=== PATIENT | female | born 1965 | race Caucasian/White ===

== ENCOUNTER 2024-11-24 16:30 | Outpatient (CLI) | payer OTHER, SELFPAY ==
--- OUTSIDE RECORDS SUMMARY | 2024-11-24 16:34 | XMS_ITS | Referral Summary ---
Author Organization [facility] Address [address] [place] [id number] Care Team Providers Care State Historical Society Director Name Role Phone Loni Morales Primary Care Provider Encounters Date Type Department Care Team Description 09/08/2024 9:34 AM ETHNOARCHAEOLOGIST - 09/08/2024 11:59 PM ETHNOARCHAEOLOGIST Hospital Encounter [facility] [address] [place] [address] Centrilobular emphysema (HCC) Discharge Disposition: Discharge to home or self care 09/08/2024 9:38 AM ETHNOARCHAEOLOGIST - 09/08/2024 11:59 PM [facility] Hospital Encounter [facility] [address] [place] [address] Encounter for screening mammogram for malignant neoplasm of breast Discharge Disposition: Discharge to home or self care from Last 3 Months Allergies No known active allergies Medications acetaminophen (TYLENOL) 325 mg tablet Take 650 mg by mouth every 6 (six) hours as needed for pain. Active SPIRIVA RESPIMAT 2.5 mcg/actuation inhalerIndication s:Centrilobular emphysema (HCC) Inhale 2 puffs daily 3 Inhaler 3 0 Active cholecalciferol (VITAMIN D-3) 10,000 unit tablet Take 1 tablet (10,000 Units total) by mouth once a week 12 tablet 3 0 Active pitavastatin calcium (LIVALO) 1 mg tablet Take 1 tablet (1 mg total) by mouth daily 30 tablet 2 0 Active allopurinoL (ZYLOPRIM) 100 mg tabletIndications :Gout of right foot, unspecified cause, unspecified chronicity TAKE 1 TABLET(100 MG) BY MOUTH TWICE DAILY 180 tablet 1 0 Active NIFEdipine (NIFEdipine CC) 90 mg 24 hr tabletIndications :Essential hypertension Take 1 tablet (90 mg total) by mouth daily 90 tablet 3 1 Active albuterol HFA (PROVENTIL HFA,VENTOLIN HFA,PROAIR HFA) 90 mcg/actuation inhalerIndication s:Centrilobular emphysema (HCC) Inhale 2 puffs every 4 (four) hours as needed for wheezing 1 Inhaler 1 Active metoprolol tartrate (LOPRESSOR) 50 mg immediate release tabletIndications :Essential hypertension TAKE 1/2 TABLET(25 MG) BY MOUTH TWICE DAILY 90 tablet 3 1 Active lisinopriL (PRINIVIL,ZESTRIL ) 20 mg tabletIndications :Essential hypertension Take 1 tablet (20 mg total) by mouth daily 30 tablet 1 Active Active Problems Problem Noted Date Diagnosed Date Vitamin D deficiency 07/17/2019 Assessment & Plan (05/17/2020 2:09 PM ETHNOARCHAEOLOGIST): HPI: Condition is stable A&P: Discussed/ordered labs, encouraged healthy, low carbohydrate lifestyle and at least 150min/week of exercise, continue on vit d3 47323 units weekly Assessment & Plan (07/17/2019 3:41 PM ETHNOARCHAEOLOGIST): Pt was out of vit d for multiple months. Class 2 obesity due to exces s calories without serious comorbidity with body mass index (BMI) of 36.0 to 36.9 in adult 06/26/2017 Assessment & Plan (05/17/2020 2:11 PM ETHNOARCHAEOLOGIST): HPI: Condition is stable A&P: Healthy, low carbohydrate lifestyle and exercise for 150min/week recommended Substitutions: [employer] carries a zero net carb bread If you are looking for whole potatoes, like to use in soup or new potato shape/flavor, radishes are a great replacement If you are looking for mashed potatoes, riced cauliflower in the frozen bag section are a great replacement For pasta, try using zucchini noodles, lay them out on a cookie sheet and pat dry with a tea towel to try to remove as much moisture as possible. Heat your pasta sauce on the stove and put the noodles in for 30-45 seconds. If you leave them in much longer they will become mushy [place] and/or coconut flour instead of regular flour For pizza dough, try fathead pizza dough recipe online. To get a crispy crust, bake on one side for 8-12 min, then flip over and bake on the other side for 8-12 min, then put toppings on and bake until the cheese on top of pizza melts chaffles recipe online For ice cream, try the brand Enlightened Use Pinterest for recipe ideas. Type in low carb... Assessment & Plan (07/17/2019 3:03 PM ETHNOARCHAEOLOGIST): Healthy, low carbohydrate lifestyle and exercise for 150min/week recommended Assessment & Plan (01/21/2018 10:37 AM CDT): Obesity is unchanged. Discussed the patient's BMI. The BMI is above average; BMI management plan is completed. Diet interventions: low calorie (1000 kCal/d) deficit diet.Diet-Many types of diets produce modest weight loss. Options include balanced low-calorie, low-fat low-calorie, moderate-fat low-calorie, low-carbohydrate diets, and the Mediterranean diet. Dietary adherence is an important predictor of weight loss, regardless of the type of diet. Exercise -- Although less potent than dietary restriction in promoting weight loss, increasing energy expenditure through physical activity is a strong predictor of weight loss maintenance. Physical activity should be performed for approximately 30 minutes or more, five to seven days a week, to prevent weight gain and to improve cardiovascular health. Behavior modification or behavior therapy is one cornerstone in the treatment for obesity. The goal of behavioral therapy is to help patients make long-term changes in their eating behavior by modifying and monitoring their food intake, modifying their physical activity, and controlling cues and stimuli in the environment that trigger eating. At least 30 minutes a day for at least 5 days a week for a total of 150 minutes a week or moderate-intensity activity! Something is always better than nothing! Centrilobular emphysema 03/30/2017 Overview (10/13/2020): Patient no longer seeing hanger off Dr. Ned Mauro Assessment & Plan (05/17/2020 2:10 PM ETHNOARCHAEOLOGIST): HPI: Condition is stable A&P: Discussed/ordered labs, encouraged healthy, low carbohydrate lifestyle and at least 150min/week of exercise, continue on spiriva respimat 2 puff daily, Please consider the albuterol as a rescue only medication. If needing the albuterol more than 2xwk, please contact office. Pt no longer seeing Dr. Mauro (pulmonology) Assessment & Plan (07/17/2019 3:32 PM ETHNOARCHAEOLOGIST): Discussed/ordered labs, Condition is stable, encouraged healthy, low carbohydrate lifestyle and at least 150min/week of exercise, continue on spiriva daily and using albuterol as needed for rescue Pt ran out of spiriva and albuterol about 3 mo ago No longer seeing Dr. Mauro (pulm) Hyperlipidemia 03/18/2014 Overview (10/19/2016): Hyperlipidemia Assessment & Plan (05/18/2020 9:47 AM ETHNOARCHAEOLOGIST): HPI: Condition is stable A&P: Discussed/ordered labs, encouraged healthy, low carbohydrate lifestyle and at least 150min/week of exercise, she has tried simvastatin, atorvastatin, zetia- these all caused her legs to feel like lead, gemfibrozil caused excessive diarrhea. Assessment & Plan (07/17/2019 3:40 PM ETHNOARCHAEOLOGIST): Discussed/ordered labs, Condition is stable, encouraged healthy, low carbohydrate lifestyle and at least 150min/week of exercise Pt has been off of diet since April and just started back on her low carb diet a few days ago Hypertension 11/28/2013 Overview (10/17/2016): HTN (hypertension) Assessment & Plan (05/18/2020 9:34 AM ETHNOARCHAEOLOGIST): HPI: Condition is Stable, bp at home has been good 120s/70s A&P: Discussed/ordered labs, encouraged healthy, low carbohydrate lifestyle and at least 150min/week of exercise, pt has no residual effects from stroke. Continue on lisinopril 20mg daily, metoprolol tartrate 25mg twice daily and nifedipine 90mg daily to keep blood pressure under good control Assessment & Plan (07/17/2019 3:02 PM ETHNOARCHAEOLOGIST): Discussed/ordered labs, Condition is stable, encouraged healthy, low carbohydrate lifestyle and at least 150min/week of exercise, continue on lisinopril 20mg, metoprolol 50mg and nifedipine 90mg Assessment & Plan (01/21/2018 10:34 AM CDT): Hypertension is unchanged. Continue current treatment regimen. Blood pressure will be reassessed in 3 months.Lifestyle changes can help you control and prevent high blood pressure, even if you're taking blood pressure medication. Here's what you can do: Eat healthy foods. Eat a healthy diet. Try the Dietary Approaches to Stop Hypertension (DASH) diet, which emphasizes fruits, vegetables, whole grains, poultry, fish and low-fat dairy foods. Get plenty of potassium, which can help prevent and control high blood pressure. Eat less saturated fat and trans fat. Decrease the salt in your diet. A lower sodium level -- 1,500 milligrams (mg) a day -- is appropriate for people 51 years of age or older, and individuals of any age who are black or who have hypertension, diabetes or chronic kidney disease. Maintain a healthy weight. Keeping a healthy weight, or losing weight if you're overweight or obese, can help you control your high blood pressure and lower your risk of related health problems. If you're overweight, losing even 5 pounds (2.3 kilograms) can lower your blood pressure. Increase physical activity. Regular physical activity can help lower your blood pressure, manage stress, reduce your risk of several health problems and keep your weight under control. Limit alcohol. Even if you're healthy, alcohol can raise your blood pressure. If you choose to drink alcohol, do so in moderation. For healthy adults, that means up to one drink a day for women of all ages and men older than age 65, and up to two drinks a day for men age 65 and younger. One drink equals 12 ounces of beer, 5 ounces of wine or 1.5 ounces of 80-proof liquor. Don't smoke. Tobacco injures blood vessel truong and speeds up the process of hardening of the arteries. If you smoke, ask your doctor to help you quit. Manage stress. Reduce stress as much as possible. Practice healthy coping techniques, such as muscle relaxation, deep breathing or meditation. Getting regular physical activity and plenty of sleep can help, too. Notify the office for blood pressure greater than 130/80 Pt. Did stop taking HCTZ and BP is stable. Will continue to monitor without diuretic. History of stroke 11/28/2013 Overview (06/26/2017): History of CVA (cerebrovascular accident) 2010 - no residual - no bleed, secondary to HTN Assessment & Plan (05/17/2020 2:08 PM ETHNOARCHAEOLOGIST): HPI: Condition is stable A&P: Discussed/ordered labs, encouraged healthy, low carbohydrate lifestyle and at least 150min/week of exercise, pt has no residual effects from stroke. Continue on atorvastatin 10mg daily, lisinopril 20mg daily, metoprolol tartrate 25mg twice daily and nifedipine 90mg daily to keep blood pressure under good control Assessment & Plan (07/17/2019 3:34 PM ETHNOARCHAEOLOGIST): Pt never saw neurology after being released from hospital. She was seeing scheduler maintenance but hasn't seen anyone in a while No residual effects from stroke Gout 09/24/2013 Overview (10/17/2016): Gout Assessment & Plan (05/17/2020 2:06 PM ETHNOARCHAEOLOGIST): HPI: Condition is stable , pt avoids trigger foods and drinks A&P: Discussed/ordered labs, encouraged healthy, low carbohydrate lifestyle and at least 150min/week of exercise, continue on allopurinol 100mg twice daily Last flare summer 2017 Assessment & Plan (07/17/2019 3:35 PM ETHNOARCHAEOLOGIST): Discussed/ordered labs, Condition is stable, encouraged healthy, low carbohydrate lifestyle and at least 150min/week of exercise, pt has been out of allopurinol for the last couple weeks. She has been avoiding trigger food and drinks Last flare was summer 2017 Assessment & Plan (01/21/2018 10:56 AM CDT): Gout is a syndrome of hyperuricemia and deposition of urate crystals causing attacks of acute inflammatory arthritis; tophi around the joints and possible joint destruction; renal glomerular, tubular, and interstitial disease; and uric acid urolithiasis. The disease most commonly affects the first toe (podagra), foot, ankle, knee, fingers, wrist, and elbow; however, it can affect any joint. Risk factors that can lead to gout include eating foods with high purine like seafood, meat, and alcohol especially Beer. Limit intake of soda and other beverages that contain sweeteners with high fructose corn syrup. Limit vegetables that are high in purines like asparagus, spinach, and mushrooms. If you are diabetic-keep your blood sugar controlled. If you have high blood pressure keep it controled and maintain a healthy weight. Increase water intake and stay well hydrated. Rest and Elevate affected joint when sitting or lying down to help reduce swelling Take any medications as prescribed If symptoms worsen- go to ER or call PCP Will check Uric acid level today No swelling or warmth to right foot. Pt. Complains of pain and tenderness and unable to bear weight. Will check CBC Encourage patient to continue Allopurinol Can take colchicine as needed and may repeat in 3 days if needed. Pt. Did stop HCTZ since it can increase Uric acid. Will do x-ray to check and see if any erosion is present. Pt. States she was at a urgent care and did a x-ray but do not have any x-rays here to evaluate. Pt. Would like Vicodin for pain but I do not believe an opiate is appropriate with the abuse and addition potential. Pt. Can take NSAID's as needed for a flare up. Her kidney function is normal. She did have an episode of acute kidney insufficieny about 3 years ago r/t an acute problem. Pt. With a family history of RA and gout Will check RF and RAUL also Assessment & Plan (01/10/2018 6:04 PM CDT): Gout is a syndrome of hyperuricemia and deposition of urate crystals causing attacks of acute inflammatory arthritis; tophi around the joints and possible joint destruction; renal glomerular, tubular, and interstitial disease; and uric acid urolithiasis. The disease most commonly affects the first toe (podagra), foot, ankle, knee, fingers, wrist, and elbow; however, it can affect any joint. Risk factors that can lead to gout include eating foods with high purine like seafood, meat, and alcohol especially Beer. Limit intake of soda and other beverages that contain sweeteners with high fructose corn syrup. Limit vegetables that are high in purines like asparagus, spinach, and mushrooms. If you are diabetic-keep your blood sugar controlled. If you have high blood pressure keep it controled and maintain a healthy weight. Increase water intake and stay well hydrated. Rest and Elevate affected joint when sitting or lying down to help reduce swelling Take any medications as prescribed Pt. With Gout Flare that started about 11 days ago. Tried Prednisone, Cochicine- with some improvement but not fully recovered Last Uric Acid level 10 on 09/26/17, She has a history of high Uric Acid. Will give a Medrol dose pack Pt. To Resume Allopurinol Will D/C Hydrochlorothiazide (discontinued)-thiazide diuretic may lead, over time, to new-onset gout and, in patients with already established gout, more frequent occurrence of gout flares Consult Rheumatology for Strong family history of Gout. Pt. Reports that her Dad, brother, and uncles all have had recurrent problems with Gout-She may have an inflammatory process that increases her frequency of Gout. Explained to her nely-term goals are to prevent recurrent attacks and chronic joint destruction. The earlier treatment is initiated, the better the clinical response. Pt. Can also take 800 mg of Motrin at Onset of symptoms in the future. Resolved Problems Problem Noted Date Diagnosed Date Resolved Date Greater trochanteric bursitis of right hip 03/31/2019 07/17/2019 Primary osteoarthritis of left foot 02/28/2018 07/17/2019 Bone marrow edema 02/28/2018 07/17/2019 Overview (02/28/2018): Right foot 1st metatarsal with marrow edema. Migraine 11/28/2013 07/17/2019 Overview (10/20/2016): Migraine Edema 11/28/2013 07/17/2019 Overview (10/20/2016): Chronic edema Immunizations Immunization Administration Dates Next Due Hep B Vaccine 07/24/2016 Influenza, Quadrivalent, Spl it, Preservative Free, Intradermal 06/13/2016 Influenza, Trivalent, IM (MDV) 05/14/2013 Influenza, Unspecified 04/28/2020,04/14/2019, MMR 07/17/2016 Social History Tobacco Use Types Packs/Day Years Used Date Smoking Tobacco: Former Cigarettes 0.8 27 0 07/15/1984 - 07/14/2011 Smokeless Tobacco: Never Alcohol Use Standard Drinks/Week Comments No 0 (1 standard drink = 0.6 oz pur e alcohol) PHQ-2 Answer Date Recorded PHQ-2 Total Score (If total score is 3 or more points, staff should administer the PHQ-9) 0 05/18/2020 Comments Unknown Sex and Gender Information Value Date Recorded Sex Assigned at Not on file Legal Sex Female 1:52 AM ETHNOARCHAEOLOGIST Gender Identity Not on file Sexual Orientation Not on file 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 Not on file Not on file Not on file Last Filed Vital Signs Vital Sign Reading Time Taken Comments Blood Pressure 117/74 05/18/2020 9:23 AM ETHNOARCHAEOLOGIST Pulse 89 07/17/2019 3:25 PM ETHNOARCHAEOLOGIST Temperature 36.8 C (98.2 F) 07/17/2019 3:25 PM ETHNOARCHAEOLOGIST Respiratory Rate 10 07/17/2019 3:25 PM ETHNOARCHAEOLOGIST Oxygen Saturation 96% 07/17/2019 3:25 PM ETHNOARCHAEOLOGIST Inhaled Oxygen Concentration - - Weight 90.7 kg (200 lb) 05/18/2020 9:23 AM ETHNOARCHAEOLOGIST Height 157.5 cm (5' 2 ) 05/18/2020 9:23 AM ETHNOARCHAEOLOGIST Body Mass Index 36.58 05/18/2020 9:23 AM ETHNOARCHAEOLOGIST Plan of Treatment Not on file Procedures Procedure Name Priority Date/Time Associated Diagnosis Comments PULMONARY FUNCTION TEST (PFT) Routine 09/08/2024 10:31 AM ETHNOARCHAEOLOGIST Centrilobular emphysema (HCC) SCREENING MAMMOGRAM BILATERAL W DYLON Schedule Routine, Read Routine (OP Routine) 09/08/2024 9:58 AM ETHNOARCHAEOLOGIST Encounter for screening mammogram for malignant neoplasm of breast STOOL DNA COLOGUARD Routine 06/09/2020 8:25 PM ETHNOARCHAEOLOGIST Screening for colon cancer HEPATITIS C ANTIBODY Routine 07/17/2019 4:09 PM ETHNOARCHAEOLOGIST Encounter for hepatitis C screening test for low risk patient from Last 3 Months or Most Recently Relevant to Health Maintenance Results * Pulmonary Function Test - (09/08/2024 10:31 AM ETHNOARCHAEOLOGIST) Anatomical Region Laterality Modality PFT 09/08/2024 9:43 AM ETHNOARCHAEOLOGIST Narrative 09/08/2024 5:31 PM ETHNOARCHAEOLOGIST PFT performed at:-[facility] Spirometry shows mild obstruction. Positive for significant bronchdilator response. Lung volumes with no restrictive lung disease. Elevated RV suggests air trapping. No diffusion impairment. Normal inspiratory flow loop. Electronically signed by Linda Cuenca MD us Loni Morales DO PFT ORDERABLES Final Result * Screening Mammogram Bilateral W Dylon (09/08/2024 9:58 AM ETHNOARCHAEOLOGIST) Anatomical Region Laterality Modality Breast Bilateral Mammography 09/08/2024 12:3 5 PM ETHNOARCHAEOLOGIST Impressions 09/08/2024 12:35 PM ETHNOARCHAEOLOGIST There is no mammographic evidence of malignancy. A 1 year screening mammogram is recommended. BI-RADS: 2 - Benign. The patient has been or will be contacted. The patient will be entered into a reminder system with a target due date of 1 year for her next mammogram. Electronically signed by: Slim Hurtado M.D. Narrative 09/08/2024 12:35 PM ETHNOARCHAEOLOGIST EXAMINATION: SCREENING MAMMOGRAM BILATERAL W DYLON ORDERING HEALTHCARE PROVIDER: LONI MORALES HISTORY: Routine screening mammography. COMPARISON: 08/10/2016, 08/14/2013, 11/19/2011 TECHNIQUE: CC and MLO views of the bilateral breasts were obtained with digital technique using breast tomosynthesis with C view. Computer aided detection was utilized. FINDINGS: DENSITY: The breasts are almost entirely fatty. BREASTS: There is a stable benign-appearing mass in the inferior right breast. There are no suspicious masses, suspicious calcifications, or other suspicious findings in either breast. There has been no suspicious interval change. Loin Morales DO IMG MAMMO PROCEDURES F inal Result * Stool DNA - Cologuard (06/09/2020 8:25 PM ETHNOARCHAEOLOGIST) Stool DNA - Cologuard Negative Not Applicable [employer] (CLIA #:[id number]) Comment: A negative result indicates a low likelihood that a colorectal cancer (CRC) or an advanced adenoma (adenomatous polyps with more advanced pre-malignant features) is present. The chance that a person with a negative Cologuard test has a colorectal cancer is less than 1 in 1500 (negative predictive value >99.9%) or has an advanced adenoma is less than 5.3% (negative predictive value 94.7%). These data are based on a prospective cross-sectional screening study of 10,000 individuals at average risk for colorectal cancer who were screened with both Cologuard and colonoscopy. (Janneth De La Torre. et al, N Engl J Med 2014;370(14):3247-0898) The normal value (reference range) for this assay is negative. COLOGUARD RE-SCREENING RECOMMENDATION: Periodic routine colorectal cancer screening is an important part of preventive healthcare for asymptomatic persons at average risk for colorectal cancer. Following a negative Cologuard result, the [place] and U.S. Multi-Society Task Force screening guidelines recommend a Cologuard re-screening interval of 3 years. References: [place] (ACS). Colorectal cancer prevention and early detection. [place], [place]: [place] [employer]; [updated 2015Nov 05]. https://www.cancer.org/cancer/yqfxb-jhjbmv-htcmvj/hkatlmdyu-fjfjrxajc-tmpcuxq/ac s-rec ommendations.html. Accessed March 14, 2018; Segundo FRAZIER, Jayjay MAYS, Lauren FLORES, Colorectal Cancer Screening: Recommendations for Physicians and Patients from the U.S. Multi-Society Task Force on Colorectal Cancer Screening, Am J Gastroenterology 2017; 112:8812-2535. TEST TYPE: Composite algorithmic analysis of stool DNA-biomarkers with hemoglobin immunoassay. Quantitative values of individual biomarkers are not reportable and are not associated with individual biomarker result reference ranges. PRECAUTIONS AND LIMITATIONS: Cologuard is intended for colorectal cancer screening of adults of either sex, 45 years or older, who are at average-risk for colorectal cancer (CRC). Cologuard has been approved for use by the U.S. FDA. Cologuard may produce a false negative or false positive result. A negative Cologuard test result does not guarantee the absence of CRC or advanced adenoma (pre-cancer). Patients with a negative Cologuard test result should be advised to continue participating in a colorectal cancer screening program. The screening interval for Cologuard is currently recommended at an interval of every 3 years by the [place] and U.S. Multi-Society Task Force. A false positive result occurs when Cologuard produces a positive result, even though a colonoscopy may not find colorectal cancer or precancerous polyps. The performance of Cologuard has been established in a cross sectional study (i.e., single point in time) of average-risk adults aged 50-84. Cologuard performance in patients ages 45 to 49 years was estimated by sub-group analysis of near-age groups. Cologuard performance data in a 10,000 patient pivotal study using colonoscopy as the reference method can be accessed at the following location: www.[employer]/results. Additional description of the Cologuard test process, warnings and precautions can be found at www.cologuardtest.com. Rx only. Stool 06/09/2020 8:25 PM ETHNOARCHAEOLOGIST 06/11/2020 1:06 PM ETHNOARCHAEOLOGIST Mary Marks NP LAB BODY FLUIDS AND STOOLS ORDERABLES Final Result [employer] [facility] (CLIA #:[id number]) Eliu Velas[place] [address] * Hepatitis C antibody (07/17/2019 4:09 PM ETHNOARCHAEOLOGIST) Hep C Ab Negative Negative EDDI PILLAI (ARISTEO) Comment:Testing performed by : [facility], [address] [place] [address], [place]., [address] Blood specimen (specimen) 07/17/2019 4:09 PM ETHNOARCHAEOLOGIST 07/18/2019 6:45 PM ETHNOARCHAEOLOGIST us Mary Marks NP LAB MICROBIOLOGY - GENERAL ORDERABLES Final Result Performing Organization Address City/State/[facility] Co de Phone Number [facility] ([place]) 1 [facility] Department [place] [address] from Last 3 Months or Most Recently Relevant to Health Maintenance Insurance [id number] [id number] PLUS [facility] CHOICE PLUS Care [employer] Director Relationship Specialty Start Date End Date Loni Morales DO [address] [place] [address] PCP - General Family Medicine 11/17/24
--- OUTSIDE RECORDS SUMMARY | 2024-11-24 16:35 | XMS_ITS | Encounter Summary ---
Author Organization [facility] Address [facility] [place] [address] Care Team Providers Care Bike Designer Name Role Phone Loni Morales DO Primary Care Provider [phone] Encounter Details Date Type Department Care Team (Late st Contact Info) Description 10/01/2024 MyChart Message Enc [facility] [place] [address] [facility] [address] [facility] [address] [place], [place] [id number] [facility], [facility] Provider xray results Social History Tobacco Use Types Packs/Day Years Used Date Smoking Tobacco: Former Cigarettes 0.5 26 1 985 - 2010 Passive Smoke Exposure: Past Smokeless Tobacco: Never Alcohol Use Standard Drinks/Week Comments Not Currently 0 (1 standard drink = 0.6 oz pur e alcohol) PHQ-2 Answer Date Recorded Patient Health Questionnaire-2 Score 0 07/16/2024 Comments No Sex and Gender Information Value Date Recorded Sex Assigned at Female 09/29/2024 2:22 PM CDT Legal Sex Female 12:45 PM KNUCKLE BENDER Gender Identity Female 09/29/2024 2:22 PM CDT Sexual Orientation Not on file documented as of this encounter Plan of Treatment Upcoming Encounters Date Type Department Care Team (Late st Contact Info) Description 11/26/2024 7:40 AM CDT [facility] [place] [address] [place], [place] [id number] Loni Morales DO [address] [place], [place] [id number] documented as of this encounter Visit Diagnoses Not on filedocumented in this encounter Additional Health Concerns Assessment Noted Time PHQ-9 Depression Total Score: 2 07/16/19 25 2:17 PM KNUCKLE BENDER documented as of this encounter Care Teams Bike Designer Relationship Specialty Start Date End Date Loni Morales DO [address] [facility] [address] [place] [address] PCP - General FAMILY PRACTICE 06/24/24 documented as of this encounter
--- OUTSIDE RECORDS SUMMARY | 2024-11-24 16:35 | XMS_ITS | Encounter Summary ---
Author Organization [facility] Healthcare Address [address] [place] [address] Care Team Providers Care Sample Stitcher Name Role Phone Krista Hernandez MD Primary Care Provider [phone] Krista Hernandez MD Primary Care Provider [phone] Loni Morales DO Primary Care Provider Reason for Visit * Reason Onset Date Comments Scheduling Appointments 02/03/2021 Confirmi ng mammogram appt- no answer Encounter Details Date Type Department Care Team (Late st Contact Info) Description 02/03/2021 Telephone [facility] [address] [place] [id number] [address] RT Scheduling Appointments (Confirming mammogram appt- no answer ) Social History Tobacco Use Types Packs/Day Years [...] on file 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 Gender Identity Not on file Sexual Orientation Not on file 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 Not on file Not on file Not on file documented as of this encounter Plan of Treatment Not on file documented as of this encounter Visit Diagnoses Not on filedocumented in this encounter Care Teams Sample Stitcher Relationship Specialty Start Date End Date Krista Hernandez MD [address] [facility] [address] PCP - General Internal Medicine 01/30/21 04/26/21 Krista Hernandez MD [address] [facility] [address] PCP - General Internal Medicine 04/27/21 11/16/24 Loni Morales DO [address] [place], [place] [id number] PCP - General Family Medicine 11/17/24 documented as of this encounter
--- OUTSIDE RECORDS SUMMARY | 2024-11-24 16:35 | XMS_ITS | Clinical Summary ---
Author Organization [facility] Address [address] [place] [address] Phone Care Team Providers Care Application Infrastructure Engineer Name Role Phone Mary Marks SLASHER SAWYER Primary Care Provi santy Allergies No known active allergies Medications lisinopril (PRINIVIL, ZESTRIL) 20 MG Tablet Take 20 mg by mouth daily. Active NIFEdipine (PROCARDIA XL) 90 MG TABLET SR 24 HR Take 90 mg by mouth daily. Active metoprolol Succinate (TOPROL-XL) 25 MG TABLET SR 24 HR Take 12.5 mg by mouth 2 times daily. Active allopurinol (ZYLOPRIM) 100 MG Tablet Take 50 mg by mouth 2 times daily. Active albuterol 108 (90 Base) MCG/ACT Aerosol Solution take 2 Puffs by inhalation. 06/26/2017 Active Cholecalciferol (VITAMIN D3) 47284 UNIT Capsule TK 1 C PO QD 07/21/2019 Active Active Problems Problem Noted Date Diagnosed Date Centrilobular emphysema 03/30/2017 Overview (09/13/2019): Managed by socially responsible investment adviser Dr. Ned Mauro Last Assessment & Plan: Discussed/ordered labs, Condition is stable, encouraged healthy, low carbohydrate lifestyle and at least 150min/week of exercise, continue on spiriva daily and using albuterol as needed for rescue Pt ran out of spiriva and albuterol about 3 mo ago No longer seeing Dr. Mauro (pulm) Hyperlipidemia 03/18/2014 Overview (09/13/2019): Hyperlipidemia Last Assessment & Plan: Discussed/ordered labs, Condition is stable, encouraged healthy, low carbohydrate lifestyle and at least 150min/week of exercise Pt has been off of diet since April and just started back on her low carb diet a few days ago History of stroke 11/28/2013 Overview (09/13/2019): History of CVA (cerebrovascular accident) 2010 - no residual - no bleed, secondary to HTN Last Assessment & Plan: Pt never saw neurology after being released from hospital. She was seeing graining press operator but hasn't seen anyone in a while No residual effects from stroke Hypertension 11/28/2013 Overview (09/13/2019): HTN (hypertension) Last Assessment & Plan: Discussed/ordered labs, Condition is stable, encouraged healthy, low carbohydrate lifestyle and at least 150min/week of exercise, continue on lisinopril 20mg, metoprolol 50mg and nifedipine 90mg Encounters Date Type Department Care Team Description 10/29/2024 11:00 AM CDT - 10/29/2024 11:59 PM CDT [facility] Ul[facility] [address] [place] [address] Provider, Not On File Loni Morales DO Discharge Disposition: Discharged to home or Selfcare 10/29/2024 Travel 10/29/2024 Transcribe Orders [facility] Central Scheduling [address] [place] [address] Loni Morales FNP Postmenopausal bleeding (Primary Dx) from Last 3 Months Family History Medical History Relation Name Comments Coronary Artery Disease Brother Coronary Artery Disease Father Chronic Obstructive Pulmonary Disease Mother Coronary Artery Disease Other Uncle Relation Name Status Comments Brother Father Mother Other Uncle Alive Social History Tobacco Use Types Packs/Day Years Used Date Smoking Tobacco: Former Smokeless Tobacco: Never Alcohol Use Standard Drinks/Week Comments Not Asked 0 (1 standard drink = 0.6 oz pur e alcohol) AUDIT-C Answer Date Recorded Frequency of Alcohol Consumption Never 03/14/2019 Average Number of Drinks Not on file 019 Frequency of Binge Drinking Not on file 0807/2018 Comments No Sex and Gender Information Value Date Recorded Sex Assigned at Not on file Legal Sex Female 9:10 PM CDT Gender Identity Not on file Sexual Orientation Not on file Last Filed Vital Signs Vital Sign Reading Time Taken Comments Blood Pressure 126/55 09/13/2019 5:55 PM CONTROL ANALYST Pulse 95 09/13/2019 5:55 PM CONTROL ANALYST Temperature 38.3 C (101 F) 09/13/2019 5:55 PM CONTROL ANALYST Respiratory Rate 16 09/13/2019 4:22 PM CONTROL ANALYST Oxygen Saturation 95% 09/13/2019 5:55 PM CONTROL ANALYST Inhaled Oxygen Concentration - - Weight 87.5 kg (193 lb) 09/13/2019 4:22 PM CONTROL ANALYST Height 157.5 cm (5' 2 ) 09/13/2019 4:22 PM CONTROL ANALYST Body Mass Index 35.3 09/13/2019 4:22 PM CONTROL ANALYST Plan of Treatment Health Maintenance Due Date Last Done Comments TdaP Immunization 1964 Pneumococcal Immunization (50+ years) (1 of 2 - PCV) 11/10/1983 Pap Smear 1985 Cervical Cancer Screening (CCS) 1994 HPV/Cotest 1994 Colonoscopy 2009 Colorectal Cancer Screening 2009 Cologuard 2014 Immunochemical Fecal Occult Blood 2014 Zoster Immunization (1 of 2) 2014 Hepatitis B Immunization (2 of 3 - 19+ 3-dose series) 08/21/2016 07/24/2016 SARS-COV-2 Immunization ( season) 2024 04/26/2022, 12/27/2021, 04/26/2021, Additional history exists Respiratory Syncytial Virus (RSV) Immunization (Adult) (1 - Risk 60-74 years 1-dose series) 2024 Mammogram 09/08/2025 09/08/2024, 08/10/2016 Influenza Immunization Completed , 05/06/2023, 04/28/2020, Additional history exists Hepatitis C Virus (HCV) Screening Completed 10/13/2024 Meningococcal Immunization (ACWY) Aged Out No longer eligible based on patient's age to complete this topic Rotavirus Immunization Aged Out No lo nger eligible based on patient's age to complete this topic Procedures Procedure Name Priority Date/Time Associated Diagnosis Comments US PELVIS COMPLETE WITH TRANSVAGINAL STAT 10/29/2024 4:42 PM CDT Postmenopausal bleeding from Last 3 Months Results * US PELVIS COMPLETE WITH TRANSVAGINAL (10/29/2024 4:42 PM CDT) Anatomical Region Laterality Modality Abdomen N/A Ultrasound 10/29/2024 5:46 PM CDT Impressions 10/29/2024 5:49 PM CDT IMPRESSION: No evidence of an acute abnormality. Uterine fibroid 2.1 cm, has submucosal extension. Endometrium normal thickness. Left ovary could not be demonstrated for assessment, by history surgically absent. Normal appearance of the right ovary. Narrative 10/29/2024 5:49 PM CDT EXAM DESCRIPTION: US PELVIS COMPLETE WITH TRANSVAGINAL REASON FOR STUDY: POSTMENOPAUSAL BLEEDING , history of left oophorectomy. Postmenopausal bleeding for 3 months. TECHNIQUE: Grayscale ultrasound of the pelvic contents was performed with transabdominal and transvaginal transducer. COMPARISON: None. FINDINGS: UTERUS: The uterus is anteverted. The uterus is homogenous in echotexture and measures 7.2 x 4.6 x 3.9 cm. Large nabothian cyst is noted. There is a uterine fibroid anterior upper uterine body with post subserosal and submucosal components, does distort the endometrium, this mass is 2.1 x 1.9 x 2.1 cm. ENDOMETRIUM: The endometrium measures 0.3 cm in thickness. RIGHT OVARY: The right ovary measures 2.4 x 1.9 x 1.8 cm. There is documentation of color Doppler flow in the right ovary. The right ovary appears unremarkable. LEFT OVARY: The left ovary could not be demonstrated for assessment, by history surgically absent. PELVIC FLUID: There is no evidence of free fluid in the pelvis. OTHER: No other significant findings. THIS IS AN ELECTRONICALLY VERIFIED FINAL REPORT 10/29/2024 5:46 PM - Electronically signed by Adithya Acosta M.D. CH: ROLANDO Report ID: [id number] Reading Location: [id number] Procedure Note Adithya Acosta Jr., MD - 10/29/2024 EXAM DESCRIPTION: US PELVIS COMPLETE WITH TRANSVAGINAL REASON FOR STUDY: POSTMENOPAUSAL BLEEDING , history of left oophorectomy. Postmenopausal bleeding for 3 months. TECHNIQUE: Grayscale ultrasound of the pelvic contents was performed with transabdominal and transvaginal transducer. COMPARISON: None. FINDINGS: UTERUS: The uterus is anteverted. The uterus is homogenous in echotexture and measures 7.2 x 4.6 x 3.9 cm. Large nabothian cyst is noted. There is a uterine fibroid anterior upper uterine body with post subserosal and submucosal components, does distort the endometrium, this mass is 2.1 x 1.9 x 2.1 cm. ENDOMETRIUM: The endometrium measures 0.3 cm in thickness. RIGHT OVARY: The right ovary measures 2.4 x 1.9 x 1.8 cm. There is documentation of color Doppler flow in the right ovary. The right ovary appears unremarkable. LEFT OVARY: The left ovary could not be demonstrated for assessment, by history surgically absent. PELVIC FLUID: There is no evidence of free fluid in the pelvis. OTHER: No other significant findings. THIS IS AN ELECTRONICALLY VERIFIED FINAL REPORT 10/29/2024 5:46 PM - Electronically signed by Adithya Acosta M.D. CH: ROLANDO Report ID: [id number] Reading Location: [id number] IMPRESSION: No evidence of an acute abnormality. Uterine fibroid 2.1 cm, has submucosal extension. Endometrium normal thickness. Left ovary could not be demonstrated for assessment, by history surgically absent. Normal appearance of the right ovary. us Not On File Provider IMG US ORDERABLES Final Res ult from Last 3 Months Insurance [facility] Care Teams Application Infrastructure Engineer Relationship Specialty Start Date End Date Mary Marks NP [address] [place] [address] DR H[address]ING [address] [place] [id number] PCP - General Advanced Practice Nurse 09/13/19
--- OUTSIDE RECORDS SUMMARY | 2024-11-24 16:35 | XMS_ITS | Clinical Summary ---
Author Organization [facility] Address [address] [place] [address] Care Team Providers Care Toolsmith Name Role Phone Loni Morales DO Primary Care Provider [phone] Allergies No known active allergies Medications allopurinol (ZYLOPRIM) 100 MG tablet Take 1 tablet (100 mg total) by mouth daily. Active NIFEdipine XL (PROCARDIA XL) 90 MG 24 hr tablet Take 1 tablet (90 mg total) by mouth daily. Active SPIRIVA RESPIMAT 2.5 MCG/ACT inhaler (SPIRIVA RESPIMAT) Inhale 2 puffs into the lungs daily. 4 Active metoprolol tartrate (LOPRESSOR) 25 MG tablet Take 1 tablet (25 mg total) by mouth 2 (two) times daily. Active Glucose Blood (ONE TOUCH/ONE TOUCH II STARTER ) Active lisinopril (PRINIVIL) 40 MG tabletIndications :Primary hypertension,Type 2 diabetes mellitus with hyperglycemia, without long-term current use of insulin ([facility]) Take 1 tablet (40 mg total) by mouth daily. 90 tablet 1 5 04/11/20 25 Active acetaminophen (TYLENOL) 325 MG tablet Take 2 tablets (650 mg total) by mouth every 6 (six) hours as needed. Active albuterol sulfate HFA 108 (90 Base) MCG/ACT inhaler Inhale 2 puffs into the lungs every 4 (four) hours as needed. 4 Active hydroCHLOROthiazi de (MICROZIDE) 12.5 MG tabletIndications :Primary hypertension Take 1 tablet (12.5 mg total) by mouth every morning. 90 tablet 5 02/08/20 25 Active hydroCHLOROthiazi de (MICROZIDE) 12.5 MG tablet Take 1 tablet (12.5 mg total) by mouth every morning. 11/10/19 25 Discontinu ed(Reorder ) Active Problems Problem Noted Date Diagnosed Date Submucous leiomyoma of uterus 2024 Overview (2024): Transvaginal ultrasound 10/29/2024 showed uterine fibroid 2.1 cm, has submucosal extension Assessment & Plan (2024 2:04 PM CDT): Pap with cotesting negative. Transvaginal ultrasound returned showing leiomyoma. Endometrial thickness was not enlarged. Will refer to [facility]Y [facility] as patient may need endometrial biopsy. Need for opgyidyvht-tejkhsv-ohuxeicne (Tdap) vac cine 2024 Overview (2024): 2024: Patient unsure of when last Tdap was given or where Assessment & Plan (2024 2:15 PM CDT): If unknown, recommend we give Tdap for patient to be up-to-date. Will attempt to request records from patient's previous provider Dr. Aye Hernandez. Postmenopausal bleeding 10/13/2024 Overview (2024): 10/13/2024: She reports she had spotting in July and August and has not had menstrual period in several years. She reports last Pap was with Krista Hernandez last year. 10/29/2024: She reports she has been having spotting and bleeding has increased in addition to cramping. She reports she had light pink spotting in July and August approximately every 28 days which was similar to cycle when she had menstrual periods. She reports she is having pain on the right side of her abdomen. She reports she started having abdominal and pelvic cramping as well as low back cramping yesterday. She reports she stopped having periods entirely in 2021. She reports both of her sisters who are younger than her last year had hysterectomies due to fibroids. She reports she has not been sexually active in close to 1 year due to pain. 2024: She reports her bleeding has stopped Assessment & Plan (11/06/2024 6:37 PM CDT): Pap with cotesting negative. Transvaginal ultrasound returned showing leiomyoma. Endometrial thickness was not enlarged. Will refer to [facility] as patient may need endometrial biopsy. Assessment & Plan (10/29/2024 2:33 PM CDT): She is at increased risk of endometrial cancer due to her obesity and other risk factors. Pelvic exam as well as Pap with HPV was performed including the use of a speculum and admission liaison medical health researcher Alondra was present for entire pelvic and breast exam. No significant abnormality present on physical exam other than uterine bleeding appearing from cervix and tenderness to palpation of left adnexa on bimanual exam. Stat transvaginal ultrasound ordered to evaluate uterus and adnexa and pelvis. Patient would like to have this done at [facility]. Assessment & Plan (10/13/2024 7:54 AM CDT): Requesting records from previous Pap. Will need to discuss at subsequent appointment. Complex tear of medial menis cus of left knee as current injury, subsequent encounter 10/13/2024 Overview (10/13/2024): 10/13/2024: She reports she remembers that pain and swelling in her right knee started Saturday, September 19, 2024. She reports she thinks it is due to pushing a large medication cart at her workplace. She reports she struggles more so at the end of the day with walking and pain however pain is improved after rest and icing. She reports since her last visit she has been taking Ibuprofen 400mg oral twice a day with no significant relief of her pain. Assessment & Plan (10/13/2024 7:56 AM CDT): MRI imaging showed complex tear of medial meniscus as well as effusion. Recommend referral to orthopedic surgery regarding complex tear of medial meniscus as may require surgical intervention. Discussed with I can prescribe Celebrex in which she would only need to take once or twice a day to get better coverage at the day versus having to re-dose ibuprofen several times a day to get effect. She declined saying that she does not want Celebrex. Can continue ibuprofen 400 mg oral with food up to 5 times a day. Elevated alkaline phosphatase level 10/13/2024 Overview (2024): 07/02/2024 ALKALINE PHOSPHATASE S/P/B 46 - 118 U/L 119 High 10/13/2024 ALKALINE PHOSPHATASE S/P/B 46 - 118 U/L 126 High Component Ref Range & Units 10/13/24 0752 GGT 5 - 55 U/L 79 High Assessment & Plan (2024 2:05 PM CDT): RUQ U/S for elevated alkaline phosphatase and elevated GGT Assessment & Plan (10/13/2024 7:39 PM CDT): Elevation of alkaline phosphatase. GGTP ordered. Hypercholesterolemia with LDL greater than 190 m g/dL 10/13/2024 History of gout 09/29/2024 Overview (09/29/2024): On allopurinol 100 mg daily. She reports she has had multiple episodes of gout in the past all involving joints in lower extremities. Acute pain of left knee 09/29/2024 Assessment & Plan (09/29/2024 5:34 PM CDT): No inciting trauma noticed. Suspect patient has acutely irritated osteoarthritis due to her increased activity within the past few months versus reactive arthritis from recent viral illness. Left x-ray ordered to evaluate for any bony pathology. Instructed patient that she can start taking ibuprofen 600 mg every 6 hours with food as needed for pain and swelling. She can continue take Tylenol exercise as well. Instructed to not take more than what is on the bottle. History of vitamin D deficiency 07/02/2024 Overview (2024): Component Ref Range & Units 10/13/24 0752 VITAMIN D 25 HYDROXY TOTAL S/P/B 30 - 100 NG/ML 30.9 Assessment & Plan (07/02/2024 4:54 PM HYDROLOGY TECHNICIAN): Records requested from previous PCP Class 3 severe obesity with serious comorbidity and body mass index (BMI) of 40.0 to 44.9 in adult, unspecified obesity type 07/02/2024 Overview (07/16/2024): Initial visit 07/02/2024: She reports she does not follow a particular diet at this time. Assessment & Plan (07/16/2024 5:23 PM HYDROLOGY TECHNICIAN): Counseled on the importance of weight loss in relation to her diabetes diagnosis and hypertension diagnosis. Counseled that we could add GLP-1 medication especially in the setting of her diabetes mellitus however she is not interested at this time. She was still communicated the importance of exercise and diet extensively. Assessment & Plan (07/02/2024 4:52 PM HYDROLOGY TECHNICIAN): BMI is communicated to and discussed with patient. Family history of coronary artery disease 2023 Overview (07/02/2024): Multiple family members Family history of hypertension 07/02/2024 Type 2 diabetes mellitus wit h stage 2 chronic kidney disease, without long-term current use of insulin ([facility]) 07/02/2024 Overview (2024): Regimen: None Hemoglobin A1c: 6.5% (10/13/2024) Eye exam: She reports appointment with [facility] scheduled 11/10/2024 Microalbumin/creatinine: 14, 10/13/2024 ; On YANG currently lisinopril 40 mg daily Microfilament: Due; Not following with podiatry Statin: Needs to be on statin however patient previously refused Initial visit 07/02/2024: Hemoglobin A1c 7.0% 12/2023 She reports her previous PCP was watching her blood sugars Patient reports she has not been on medication previously. She reports it has been a while since her last eye exam. She reports she goes to [facility]. 2024: Discussed with patient that last recorded eye exam was from 2020. She reports she has appointment with [facility] tomorrow, 11/10/2024 Assessment & Plan (2024 2:14 PM CDT): Will plan to request records after patient's eye exam. Assessment & Plan (10/13/2024 7:56 AM CDT): A1c and CMP ordered to be completed today Assessment & Plan (07/16/2024 5:24 PM HYDROLOGY TECHNICIAN): Discussed with patient that I recommend starting medication therapy with metformin. She would like to have a trial to attempt to diet controlled diabetes. She is counseled extensively and at length regarding nutrition and recommended to obtain spinneret person/nutrition professional to give her advice. I am more than happy to place referral if she would like/needs a specific referral. She is also counseled regarding importance of aerobic and anaerobic/weight training exercise. Recommended to work with animal trainer supervisor. Counseled to decrease overall carbohydrate intake and avoid sodas and sugary beverages in addition to diet sodas. Counseled that it is not necessary for her to take her blood glucose measurements every day however she does want to take them take them when she is fasting or if she feels symptomatic as her blood pressure could be excessively high or low. Assessment & Plan (07/02/2024 4:50 PM HYDROLOGY TECHNICIAN): Hemoglobin A1c and CMP ordered today Patient encouraged to have dilated eye exam annually. Hemoglobin A1c 6.5% and fasting blood glucose elevated at 160 returned after patient visit. I would like to initiate diabetes medication treatment at upcoming appointment which was communicated to patient via [employer]. History of spleen injury 07/02/2024 Overview (07/02/2024): She reports she had splenic laceration Family history of COPD (foam rubber mixer osiel obstructive pulmonary disease) 07/02/2024 Cigarette nicotine dependence in remission 07/02 History of ectopic 07/02/2024 Overview (07/02/2024): She reports she has had 2 ectopic pregnancies in the past Stage 2 chronic kidney disease 07/02/2024 Overview (07/16/2024): 07/02/2024: She reports she previously saw a tenter feeder. 07/16/2024: Decreased GFR of 77 on 07/02/2024 Assessment & Plan (10/13/2024 7:37 PM CDT): Repeat renal function completed today GFR: 84, 10/13/2024 Urine microalbumin to creatinine ratio: 14, 10/13/2024 YANG/ARB: Lisinopril Assessment & Plan (07/16/2024 5:27 PM HYDROLOGY TECHNICIAN): Counseled patient that decreased GFR is likely related to diabetes/hypertension. Also patient reports her fluid intake is not that good right now which dehydration can be a component of decreased GFR. Will recheck GFR in September 2024. Also waiting for previous records. Assessment & Plan (07/02/2024 5:03 PM HYDROLOGY TECHNICIAN): CMP ordered and showed estimated GFR 77. Suspect CKD stage II however we will need further information. Family history of alcohol abuse and dependence 1 09/02/2023 Centrilobular emphysema ([facility]) 2016 Overview (07/16/2024): Initial visit 07/02/2024: She has history of cigarette smoking. She reports her last pulmonary function testing was completed approximately 2015. Per chart review patient previously saw evp and chief operating officer Dr. Ned Mauro however is no longer following with. She is currently using Spiriva Respimat 2 puffs daily and albuterol inhaler as needed. Assessment & Plan (07/16/2024 5:17 PM HYDROLOGY TECHNICIAN): Discussed with patient that I would like to repeat pulmonary function testing. She is agreeable I would like to have done at [facility] in [place], [place]. If continues to show COPD/emphysema on PFT, we will plan to escalate to triple therapy with Trelegy or Breztri. Assessment & Plan (07/02/2024 4:52 PM HYDROLOGY TECHNICIAN): Discussed with patient that she is needs to be on triple therapy either Breztri or Trelegy. She likely needs to have repeat pulmonary function testing. Mixed hyperlipidemia 03/18/2014 Overview (07/02/2024): Initial visit 07/02/2024: Patient reports she is trialed multiple statin medications. She reports she tried ezetimibe. Previous lipid panel per chart review 07/17/2019 Total cholesterol: 319 Triglycerides: 284 HDL: 50 LDL: 212 Non-HDL cholesterol: 269 Cholesterol/HDL ratio: 6 Assessment & Plan (07/02/2024 2:15 PM HYDROLOGY TECHNICIAN): Patient counseled at length regarding importance of cholesterol-lowering medication therapy especially as her LDL cholesterol is greater than 190 and she has had history of stroke and a significant family history of coronary artery disease. History of stroke 11/28/2013 Overview (07/16/2024): History of CVA (cerebrovascular accident) 2010 - no residual - no bleed, secondary to HTN She was seeing tenter feeder but hasn't seen anyone in a while No residual effects from stroke 07/16/2024: She reports she was on daily aspirin for a long time however discontinued as she kept having multiple bruises appear on her body. Assessment & Plan (07/02/2024 4:54 PM HYDROLOGY TECHNICIAN): She is currently on antihypertensive therapy however is not on aspirin therapy. Primary hypertension 11/28/2013 Overview (2024): Regimen: lisinopril 20mg daily, metoprolol titrate 25 mg twice daily, hydrochlorothiazide 12.5 mg daily and nifedipine XL 90mg daily GFR: 84, 10/13/2024. 77, 07/02/2024. Urine microalbumin to creatinine ratio: 14, 10/13/2024 Blood pressure monitoring device at home: YES Initial visit 07/02/2024: On lisinopril 20mg daily, metoprolol titrate 25 mg twice daily, hydrochlorothiazide 12.5 mg daily and nifedipine XL 90mg daily. She reports she has arm blood pressure cuff at home however does not routinely check her blood pressure at home. She states blood pressure typically runs around 120/70. 07/16/2024: She reports she has been measuring her blood pressure at home occasionally and has readings around 120s over 70s. 09/29/2024: She reports she has missed a few days of blood pressure medication due to running out and not picking up at pharmacy due to her work schedule. She reports she missed metoprolol tartrate a few doses however restarted yesterday. Otherwise, she reports she has been taking her medications as prescribed. 2024: She reports she ran out of hydrochlorothiazide 12.5 mg daily and feels swollen Assessment & Plan (2024 2:12 PM CDT): Blood pressure elevated in office. Hydrochlorothiazide 12.5 mg daily refilled to patient's pharmacy. Assessment & Plan (10/13/2024 7:57 AM CDT): Blood pressure is elevated in office today. Would like to increase lisinopril 20 mg daily to 40 mg daily. Discussed with patient that when hydrochlorothiazide prescription runs out, I would like her to discontinue at this time and I do not plan to refill unless her blood pressure is uncontrolled despite increasing lisinopril. Discussed at previous appointment that hydrochlorothiazide could impact her gout in a negative way. Renal function ordered today. Assessment & Plan (09/29/2024 5:32 PM CDT): Blood pressure elevated in office today. Patient to continue blood pressure medication. Patient that would like to discontinue her hydrochlorothiazide and increase lisinopril as hydrochlorothiazide can contribute to increase serum urate which can precipitate gout. She would like to postpone making change at this time. Assessment & Plan (07/16/2024 5:18 PM HYDROLOGY TECHNICIAN): Blood pressure continues to remain slightly elevated. Continue current blood pressure regimen. Patient is again to monitor blood pressure. If patient loses weight, I suspect her blood pressure will improve and she may be able to discontinue some medication. Assessment & Plan (07/02/2024 2:16 PM HYDROLOGY TECHNICIAN): Encouraged to take blood pressure measurements at home and bring in the log and cuff to next appointment. At this time, continue lisinopril 20 mg daily, metoprolol titrate 25 mg twice daily, hydrochlorothiazide 12.5 mg daily and nifedipine XL 90mg daily. Refill placed for hydrochlorothiazide 12.5 mg daily. Resolved Problems Problem Noted Date Diagnosed Date Resolved Date Cervical cancer screening 10/29/2024 Overview (2024): Pap with cotesting completed and returned - 10/29/2024 Assessment & Plan (10/29/2024 2:22 PM CDT): In the setting of patient's postmenopausal bleeding and pelvic exam, I completed Pap and will send off for Pap screening with HPV. Viral upper respiratory tract infection 07/02/2024 07/16/2024 Overview (07/02/2024): She reports she has had increased cough and congestion. She reports she has been taking Mucinex cough drops at home and using albuterol rescue inhaler. She reports she is tested twice for COVID at home and both have been negative. Assessment & Plan (07/02/2024 4:55 PM HYDROLOGY TECHNICIAN): Patient counseled that symptoms are likely result of viral upper respiratory illness and supportive care is recommended at this time. If she gets worse and develops fever, increasing shortness of breath, increased cough among other symptoms she is to return for reevaluation. Vitamin D deficiency 07/17/2019 025 Overview (2024): Component Ref Range & Units 10/13/24 0752 VITAMIN D 25 HYDROXY TOTAL S/P/B 30 - 100 NG/ML 30.9 Class 2 obesity due to exces s calories without serious comorbidity with body mass index (BMI) of 36.0 to 36.9 in adult 06/26/2017 Encounters Date Type Department Care Team Description 11/11/2024 Telephone [facility] Medical [place] [address] [place] [address] Loni Morales, DO Record Request 2024 1:40 PM CDT Office Visit [place] [address] [place] [address] Loni Morales, DO Results (No questions or concerns. /) 2024 Travel 11/05/2024 Results Follow-Up [facility] [address] [place] [address] Loni Morales, DO Cytopath Cerv/Vag Thin Layer, HUMAN PAPILLOMAVIRUS, HIGH-RISK TYPES 10/29/2024 1:40 PM CDT Office Visit [place] [address] [address] [place] [address] Loni Morales, DO Employment Service Specialist Exam (Pt states she has been having abnormal bleeding and cramping for 3 months. // pt is post menopausal. /) 10/29/2024 10:06 AM CDT - 10/29/2024 11:59 PM CDT Hospital Encounter [facility] [address] [place] [address] Loni Morales, DO Discharge Disposition: Home or Self Care (Routine Discharge) 10/29/2024 Scan HEALTH INFO SRVCS Scanned, Doc [facility] Ultrasound (SCAN) 10/29/2024 Travel 10/28/2024 [facility] [place] [address] [address] [place] [address] Loni Morales, DO Concerns 10/15/2024 Telephone [facility] - [place] [place] [address] Husam Evangelista MD Information 10/13/2024 7:20 AM CDT [facility] [place] [address] [place] [address] Loni Morales, DO Follow Up 10/13/2024 - 10/13/2024 11:59 PM CDT [facility] [address] [place] [address] Loni Morales, DO Discharge Disposition: Home or Self Care (Routine Discharge) 10/13/2024 Telephone [facility] [address] [place] [address] Loni Morales, DO Record Request 10/13/2024 Orders Only [facility] [address] [place] [address] Alondra Hernandez MA 10/13/2024 Travel 10/09/2024 Telephone [facility] [address] [place] [address] Loni Morales, DO Results 10/06/2024 8:50 AM CDT - 10/06/2024 11:59 PM CDT Hospital Encounter [facility] [address] [place] [address] Linda Correa, TOBACCO ACREAGE MEASURER Discharge Disposition: Home or Self Care (Routine Discharge) 10/06/2024 Travel 10/01/2024 MyChart Message Enc [facility] [address] [place] [address] A[facility], [facility] Provider xray results 10/01/2024 [facility] [address] [place] [address] Loni Morales, Results 09/29/2024 3:00 PM CDT Office Visit [facility] [address] [place] [address] Loni Morales, DO Knee Pain (Pt is having left knee pain. /Pt states it started a few weeks ago. /No trauma. /Started mild and has gotten worse. /Pt has been taking tylenol and using ice. /Worse at night. /Pt has not had xrays. /) 09/29/2024 Travel 09/08/2024 Scan [facility] HEALTH INFO SRVCS Scanned, Doc [facility] PFT (SCAN); Mammogram (SCAN) from Last 3 Months Immunizations Immunization Administration Dates Next Due Fluzone Intradermal Quad (IIV4) 06/13/2016 Hepatitis B (Generic: Adult) 07/24/2016 Influenza (Generic) 04/14/2024, 0,04/14/2019,2016,05/14/2013 Influenza Adult (Generic) 05/06/2023 MMR (MMRII) 07/17/2016 [employer] COVID-19 (ORIGINAL FORMULATION, PURPLE CAP) mRNA, LNP-S, PF, 30 MCG/0.3 ML DOSE 07/20/2020 Family History Medical History Relation Comments Coronary artery disease Brother 1 Alcohol/Drug Brother 2 Hypertension Brother 2 Maria Elena-Pick disease Daughter at 16 Heart Attack Father at 45 Alcohol Abuse Maternal Grandfather Cirrhosis Maternal Grandfather COPD Maternal Grandmother Hypertension Maternal Grandmother COPD Mother Hernia Mother from ornelas rgical complication at 56 Hypertension Mother COPD Paternal Grandfather Glaucoma Paternal Grandfather Cirrhosis Paternal Grandmother Coronary artery disease Paternal Uncle 1 Coronary artery disease Paternal Uncle 2 Hypertension Sister 1 Hypertension Sister 2 Relation Status Comments Brother 1 Brother 2 Alive Daughter Father Maternal Grandfather Maternal Grandmother Mother Paternal Grandfather Paternal Grandmother Paternal Uncle 1 Paternal Uncle 2 Sister 1 Alive Sister 2 Alive Social History Tobacco Use Types Packs/Day Years Used Date Smoking Tobacco: Former Cigarettes 0.5 26 1 985 - 2010 Passive Smoke Exposure: Past Smokeless Tobacco: Never Tobacco Cessation:Counseling Given: No Alcohol Use Standard Drinks/Week Comments Not Currently 0 (1 standard drink = 0.6 oz pur e alcohol) PHQ-2 Answer Date Recorded Patient Health Questionnaire-2 Score 0 07/16/2024 Comments No Sex and Gender Information Value Date Recorded Sex Assigned at Female 09/29/2024 2:22 PM CDT Legal Sex Female 12:45 PM HYDROLOGY TECHNICIAN Gender Identity Female 09/29/2024 2:22 PM CDT Sexual Orientation Not on file Last Filed Vital Signs Vital Sign Reading Time Taken Comments Blood Pressure 144/84 2024 1:53 PM CDT Pulse 74 2024 1:50 PM CDT Temperature 37.1 C (98.7 F) 2024 1:50 PM CDT Respiratory Rate 16 2024 1:50 PM CDT Oxygen Saturation 96% 2024 1:50 PM CDT Inhaled Oxygen Concentration - - Weight 102.5 kg (226 lb) 2024 1:50 PM CDT Height 157.5 cm (5' 2 ) 2024 1:50 PM CDT Body Mass Index 41.34 2024 1:50 PM CDT Plan of Treatment Upcoming Encounters Date Type Department Care Team (Late st Contact Info) Description 11/26/2024 7:40 AM CDT Office Visit [facility] [place] [address] [place] [address] Loni Morales, [address], [address] [place] [address] Health Maintenance Due Date Last Done Comments Annual Physical 11/10/1967 Diabetes: Retinopathy Eye Exam 1982 Pneumococcal Vaccine: 50+ Years (1 of 2 - PCV) 11/10/1983 RSV Immunization or 60+ Years (1 - Risk 60-74 years 1-dose series) 2024 Hemoglobin A1C 04/14/2025 10/13/2024, 07/02/2024 Mammogram Screening 09/08/2025 09/08/2024, 09/08/2024, 08/10/2016 COVID-19 Vaccine ( season) 2025 04/26/2022, 12/27/2021, 04/26/2021, Additional history exists Postponed from 03/15/2024 (Patient Refused) DTaP, Tdap and Td Vaccines (1 - Tdap) 09/29/2025 Postponed from 11/10/1983 (Patient Refused) Zoster Vaccines (1 of 2) 09/29/2025 Pos tponed from 2014 (Patient Refused) Kidney Health Evaluation 10/13/2025 10/13/2024 Lipid Panel 10/13/2025 10/13/2024 Colorectal Cancer Screening FIT-DNA (3 Years) 08/31/2026 08/31/2023, 08/31/2023 Cervical Cancer Screening Pap Smear (Age 30 to 64) Every 3 Years 10/30/2027 10/29/2024 Cervical Cancer Screening Pap with HPV Testing (Age 30 to 64) Every 5 Years 10/29/2029 10/29/2024 Cervical Cancer Screening with HPV 10/29/2029 PHQ-2 (Physician [place]) Completed 07/16/2024 Hepatitis C Completed 10/13/2024 Meningococcal B Vaccine Aged Out No l onger eligible based on patient's age to complete this topic Meningococcal Vaccine Aged Out No ricky aylin eligible based on patient's age to complete this topic RSV Immunizations Under 20 Months Aged Out No longer eligible based on patient's age to complete this topic Procedures Procedure Name Priority Date/Time Associated Diagnosis Comments CYTOPATH CERV/VAG THIN LAYER Routine 10/29/2024 12:36 PM CDT Cervical cancer screening HUMAN PAPILLOMAVIRUS, HIGH-RISK TYPES Routine 10/29/2024 12:00 PM CDT ULTRASOUND GENERIC (SCAN ORDER) 10/29/2024 GGT, GAMMA GLUTAMYLTRANSFERASE Routine 10/13/2024 7:52 AM CDT Elevated alkaline phosphatase level HEMOGLOBIN, GLYCOSYLATED Routine 025 7:52 AM CDT Type 2 diabetes mellitus with hyperglycemia, without long-term current use of insulin ([facility]HCC) ALBUMIN URINE RANDOM W/CREATININE Routine 10/13/2024 7:52 AM CDT Primary hypertension Type 2 diabetes mellitus without complication, without long-term current use of insulin ([facility]/HCC) URINALYSIS, AUTO, COMPLETE Routine 10/13/2024 7:52 AM CDT Primary hypertension Type 2 diabetes mellitus without complication, without long-term current use of insulin ([facility]HCC) Class 3 severe obesity with serious comorbidity and body mass index (BMI) of 40.0 to 44.9 in adult, unspecified obesity type TSH W/REFLEX Routine 10/13/2024 7:52 AM CDT Class 3 severe obesity with serious comorbidity and body mass index (BMI) of 40.0 to 44.9 in adult, unspecified obesity type VITAMIN D, 25 OH Routine 10/13/2024 7:52 AM CDT Vitamin D deficiency LIPID PANEL Routine 10/13/2024 7:52 AM CDT Type 2 diabetes mellitus without complication, without long-term current use of insulin (CMS/HCC HHS/HCC) Mixed hyperlipidemia COMPREHENSIVE METABOLIC PANEL Routine 10/13/2024 7:52 AM CDT Primary hypertension Type 2 diabetes mellitus without complication, without long-term current use of insulin (CMS/HCC HHS/HCC) CBC W/DIFF AUTOMATED Routine 10/13/2024 7:52 AM CDT Primary hypertension Type 2 diabetes mellitus without complication, without long-term current use of insulin (CMS/HCC HHS/HCC) HEPATITIS C ANTIBODY Routine 10/13/2024 7:51 AM CDT Encounter for hepatitis C screening test for low risk patient MRI KNEE LT WO CON Routine 10/06/2024 10:05 AM CDT Acute pain of left knee XR KNEE LT 3V Routine 09/30/2024 7:37 AM CDT Acute pain of left knee PFT GENERIC (SCAN ORDER) 09/08/2024 MAMMOGRAM GENERIC (SCAN ORDER) 09/08/2024 COLOGUARD (SCAN ORDER) Routine 08/31/2023 from Last 3 Months or Most Recently Relevant to Health Maintenance Results * Cytopath Cerv/Vag Thin Layer (10/29/2024 12:36 PM CDT) THIN PREP PAP [address] [address] Department of Pathology Pathology Report CERVICAL/VAGINAL PAP SMEAR REPORT Name: NORMA BANUELOS Age: 4 1965 (Age: 58) Location: [facility] Sex: F Collected Date: 10/29/2024 [facility] #: [id number] Date Received: 10/30/2024 Date Reported: 11/05/2024 Provider: LONI MORALES INTERPRETATION ABNORMAL RESULT CERVICAL/ENDOCERVI ALEKSANDR: SATISFACTORY FOR EVALUATION. ENDOCERVICAL/TRANS FORMATION ZONE COMPONENT PRESENT. ENDOMETRIAL CELLS PRESENT (POSTMENOPAUSAL). NEGATIVE FOR SQUAMOUS INTRAEPITHELIAL LESION. NEGATIVE FOR HIGH RISK HPV. The FDA approved Aptima HPV assay is an in vitro nucleic acid amplification test for the qualitative detection of E6/E7 viral messenger RNA (mRNA) from 14 high-risk types of human papillomavirus (HPV) in cervical specimens. The high-risk HPV types detected by the assay include: 16,18,31,33,35,39, 45,51,52,56,58,59, 66, and 68. Electronically Signed Out DANIEL Larson MD (ASCP) CLINICAL HISTORY (Z12.4) CERVICAL CANCER SCREENING PAP TEST SCREENING NO HISTORY OR AT HIGH RISK ThinPrep Pap Test with HR HPV testing in patient > 30 years requested. Date of Last Menstrual Period: 2021 Menstrual Status: Post-Menopausal Abnormal Bleeding SPECIMEN SUBMITTED CERVICAL/ENDOCERVI ALEKSANDR Specimen Received:1 Thin Prep Vial, Image Assisted Pap (SMD) Please note: The Pap smear is not a diagnostic test. It is a screening test. Negative results on combined screening (Pap test and HPV-DNA) have a high negative predictive value (99.1-100 percent) for cervical cancer. The pap test is not effective in detecting cervical adenocarcinoma. [facility] () [facility] 10/29/2024 12:3 6 PM CDT 10/30/2024 12:36 PM CDT Comment:CERVICAL/ENDOCERVICA L us Loni Morales DO PATHOLOGY/CYTOLOGY ORDERABLES Final Result [facility] [address] [place] [address], * HUMAN PAPILLOMAVIRUS, HIGH-RISK TYPES (10/29/2024 12:00 PM CDT) SPEC DESCRIPTION CERVIX 11/03/19 9:15 AM CDT [facility] HPV DNA HIGH RISK NEGATIVE NEGATIVE 11/02/2024 2:10 PM CDT [facility] Comment:SEE CYTOLOGY REPORT 10/29/2024 12:0 0 PM CDT Loni Morales DO PATHOLOGY/CYTOLOGY ORDERABLES Final Result [facility] [address] [place] [address], * ULTRASOUND GENERIC (SCAN ORDER) (10/29/2024) Anatomical Region Laterality Modality Other 10/29/2024 [facility] Scanned SCANNING Final Resu lt * TSH W/REFLEX (10/13/2024 7:52 AM CDT) TSH 2.745 0.358 - 3.740 uIU/ML 10/13/2024 4:58 PM CDT [facility] [id number]|2024-11-24 16:35:00|2024-11-24 16:34:00|XMS_ITS|SKYLAR NEWBERRY|External Medical Summaries|[id number]|" Clinical Summary Created on: November 24, 2024 Norma Banuelos : 1965 Sex: Female Author Organization [facility] Address [address] [place] [address] Care Team Providers Care Toolsmith Name Role Phone Loni Morales Primary Care Provider Allergies No known active allergies Medications acetaminophen [...] 07/17/2019 Assessment & Plan (05/17/2020 2:09 PM HYDROLOGY TECHNICIAN): HPI: Condition is stable A&P: Discussed/ordered labs, encouraged healthy, low carbohydrate lifestyle and at least 150min/week of exercise, continue on vit d3 94275 units weekly Assessment & Plan (07/17/2019 3:41 PM HYDROLOGY TECHNICIAN): Pt was out of vit d for multiple months. Class 2 obesity due to exces s calories without serious comorbidity with body mass index (BMI) of 36.0 to 36.9 in adult 06/26/2017 Assessment & Plan (05/17/2020 2:11 PM HYDROLOGY TECHNICIAN): HPI: Condition is stable A&P: Healthy, low [...] in much longer they will become mushy [place] and/or coconut flour instead of regular flour [...] carb... Assessment & Plan (07/17/2019 3:03 PM HYDROLOGY TECHNICIAN): Healthy, low carbohydrate lifestyle and exercise for [...] 03/30/2017 Overview (10/13/2020): Patient no longer seeing evp and chief operating officer Dr. Ned Mauro Assessment & Plan (05/17/2020 2:10 PM HYDROLOGY TECHNICIAN): HPI: Condition is stable A&P: Discussed/ordered labs, encouraged healthy, low carbohydrate lifestyle and at least 150min/week of exercise, continue on spiriva respimat 2 puff daily, Please consider the albuterol as a rescue only medication. If needing the albuterol more than 2xwk, please contact office. Pt no longer seeing Dr. Mauro (pulmonology) Assessment & Plan (07/17/2019 3:32 PM HYDROLOGY TECHNICIAN): Discussed/ordered labs, Condition is stable, encouraged healthy, low carbohydrate lifestyle and at least 150min/week of exercise, continue on spiriva daily and using albuterol as needed for rescue Pt ran out of spiriva and albuterol about 3 mo ago No longer seeing Dr. Mauro ([facility]) Hyperlipidemia 03/18/2014 Overview (10/19/2016): Hyperlipidemia Assessment & Plan (05/18/2020 9:47 AM HYDROLOGY TECHNICIAN): HPI: Condition is stable A&P: Discussed/ordered labs, encouraged healthy, low carbohydrate lifestyle and at least 150min/week of exercise, she has tried simvastatin, atorvastatin, zetia- these all caused her legs to feel like lead, gemfibrozil caused excessive diarrhea. Assessment & Plan (07/17/2019 3:40 PM HYDROLOGY TECHNICIAN): Discussed/ordered labs, Condition is stable, encouraged healthy, low carbohydrate lifestyle and at least 150min/week of exercise Pt has been off of diet since April and just started back on her low carb diet a few days ago Hypertension 11/28/2013 Overview (10/17/2016): HTN (hypertension) Assessment & Plan (05/18/2020 9:34 AM HYDROLOGY TECHNICIAN): HPI: Condition is Stable, bp at home has been good 120s/70s A&P: Discussed/ordered labs, encouraged healthy, low carbohydrate lifestyle and at least 150min/week of exercise, pt has no residual effects from stroke. Continue on lisinopril 20mg daily, metoprolol tartrate 25mg twice daily and nifedipine 90mg daily to keep blood pressure under good control Assessment & Plan (07/17/2019 3:02 PM HYDROLOGY TECHNICIAN): Discussed/ordered labs, Condition is stable, encouraged healthy, [...] Overview (06/26/2017): History of CVA (cerebrovascular accident) 2011 - no residual - no bleed, secondary to HTN Assessment & Plan (05/17/2020 2:08 PM HYDROLOGY TECHNICIAN): HPI: Condition is stable A&P: Discussed/ordered labs, encouraged healthy, low carbohydrate lifestyle and at least 150min/week of exercise, pt has no residual effects from stroke. Continue on atorvastatin 10mg daily, lisinopril 20mg daily, metoprolol tartrate 25mg twice daily and nifedipine 90mg daily to keep blood pressure under good control Assessment & Plan (07/17/2019 3:34 PM HYDROLOGY TECHNICIAN): Pt never saw neurology after being released from hospital. She was seeing tenter feeder but hasn't seen anyone in a while No residual effects from stroke Gout 09/24/2013 Overview (10/17/2016): Gout Assessment & Plan (05/17/2020 2:06 PM HYDROLOGY TECHNICIAN): HPI: Condition is stable , pt avoids trigger foods and drinks A&P: Discussed/ordered labs, encouraged healthy, low carbohydrate lifestyle and at least 150min/week of exercise, continue on allopurinol 100mg twice daily Last flare summer 2017 Assessment & Plan (07/17/2019 3:35 PM HYDROLOGY TECHNICIAN): Discussed/ordered labs, Condition is stable, encouraged healthy, [...] Edema 11/28/2013 07/17/2019 Overview (10/20/2016): Chronic edema Encounters Date Type Department Care Team Description 09/08/2024 9:38 AM HYDROLOGY TECHNICIAN - 09/08/2024 11:59 PM HYDROLOGY TECHNICIAN Hospital Encounter [facility] [address] [place] [address] Encounter for screening mammogram for malignant neoplasm of breast Discharge Disposition: Discharge to home or self care 09/08/2024 9:34 AM HYDROLOGY TECHNICIAN - 09/08/2024 11:59 PM HYDROLOGY TECHNICIAN Hospital Encounter [facility] [address] [place] [address] Centrilobular emphysema (HCC) Discharge Disposition: Discharge to home or self care from Last 3 Months Immunizations Immunization Administration Dates Next Due Hep B Vaccine 07/24/2016 Influenza, Quadrivalent, Spl it, Preservative Free, Intradermal 06/13/2016 Influenza, Trivalent, IM (MDV) 05/14/2013 Influenza, Unspecified 04/28/2020,04/14/2019, MMR 07/17/2016 Surgical History Surgery Date Site/Laterality Comments OTHER SURGICAL HISTORY entopic other tube removal OTHER SURGICAL HISTORY entopic tube and ovary removal OTHER SURGICAL HISTORY splenic laceration with repair. Medical History Medical History Date Comments Hx Other Medical chronic headach es Hx Other Medical CVA no bleed. n o residual deficit. /2 to htn. 245; Comments: rt arm and leg paresthesias. some dysarthria. rt facial droop. december 12 cva. Cerebrovascular accident (CVA) (HCC) stroke Hyperlipidemia Hyperlipidemia Gout Gout Hypertension Hypertension Hx Other Medical spleenoplasty Hx Other Medical etopic pregnanc y Hx Other Medical b/l fallopian t ube removal and left ovary removed. Hx Other Medical 12/10/2015 Appendectomy Bone marrow edema 02/28/2018 Right foot 1st metatarsal with marrow edema. Edema 11/28/2013 Chronic edema Migraine 11/28/2013 Migraine Greater trochanteric bursiti s of right hip 03/31/2019 Primary osteoarthritis of left foot 02/28/2018 Family History Medical History Relation Name Comments Other Brother 1 [place] heart disease.; Cause of : heart disease. Hypertension Brother 2 Ullon Hypertension; Other Brother 3 ullona Alive and well; Other Brother 4 ullon irregular heart beat; Gout Father Gout; Heart disease Father Heart disease; Cause of : Heart disease Hypertension Mother Hypertension; Other Mother bowel disease; Cause of : bowel disease Stroke Mother Stroke; Alcohol abuse Other 1 Family history of Alcoholism; COPD Other 2 Family history of COPD; Gout Other 3 Family history of Gout; Heart disease Other 4 Family history of Heart disease; Stroke Other 5 Family history of Stroke; Hypertension Other 6 Family history of Hypertension; Other Sister 1 Andie Alive and well; Hypertension Sister 2 Hypertension; Relation Name Status Comments Brother 1 [place] Brother 2 Ullon Alive Brother 3 ullona Alive Brother 4 ullon Father Alive Mother Other 1 Other 2 Other 3 Other 4 Other 5 Other 6 Sister 1 Andie Alive Sister 2 Social History Tobacco Use Types Packs/Day Years [...] on file Legal Sex Female 1:52 AM HYDROLOGY TECHNICIAN Gender Identity Not on file Sexual Orientation Not on file 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 Not on file Not on file Not on file Obstetrics History Para Term AB IAB SAB Ectopic Multiple Livin g Live Births 5 1 1 Date Outcome GA Total Labor Labor/2nd/3rd Weight Sex Type Anes PTL Jessica A1 A5 Name Clin Term Last Filed Vital Signs Vital Sign Reading Time Taken Comments Blood Pressure 117/74 05/18/2020 9:23 AM HYDROLOGY TECHNICIAN Pulse 89 07/17/2019 3:25 PM HYDROLOGY TECHNICIAN Temperature 36.8 C (98.2 F) 07/17/2019 3:25 PM HYDROLOGY TECHNICIAN Respiratory Rate 10 07/17/2019 3:25 PM HYDROLOGY TECHNICIAN Oxygen Saturation 96% 07/17/2019 3:25 PM HYDROLOGY TECHNICIAN Inhaled Oxygen Concentration - - Weight 90.7 kg (200 lb) 05/18/2020 9:23 AM HYDROLOGY TECHNICIAN Height 157.5 cm (5' 2 ) 05/18/2020 9:23 AM HYDROLOGY TECHNICIAN Body Mass Index 36.58 05/18/2020 9:23 AM HYDROLOGY TECHNICIAN Plan of Treatment Health Maintenance Due Date Last Done Comments Cervical Cancer Screening 1965 DTaP/Tdap/Td Vaccine (1 - Tdap) 11/10/1975 Regular Well Visit/Exam 18-64 1982 Pneumococcal vaccine <65 (1 of 2 - PCV) 11/10/1983 Lung Cancer Screening 2014 Zoster Vaccine (1 of 2) 2014 Depression Screening 05/18/2021 05/18/2020, 09/05/2018, 02/28/2018, Additional history exists Colon Cancer Screening-DNA Stool 06/09/2023 06/09/2020, 08/06/2016, 08/06/2016, Additional history exists Breast Cancer Screening-Mammogram 09/08/2025 09/08/2024, 08/10/2016, 08/04/2016, Additional history exists Hepatitis B Screening Completed 07/24/2016 Hepatitis C Screening Completed 07/17/2019 Influenza Vaccine Completed 04/14/2024, , 04/28/2020, Additional history exists Procedures Procedure Name Priority Date/Time Associated Diagnosis Comments PULMONARY FUNCTION TEST (PFT) Routine 09/08/2024 10:31 AM HYDROLOGY TECHNICIAN Centrilobular emphysema (HCC) SCREENING MAMMOGRAM BILATERAL W DYLON Schedule Routine, Read Routine (OP Routine) 09/08/2024 9:58 AM HYDROLOGY TECHNICIAN Encounter for screening mammogram for malignant neoplasm of breast STOOL DNA COLOGUARD Routine 06/09/2020 8:25 PM HYDROLOGY TECHNICIAN Screening for colon cancer HEPATITIS C ANTIBODY Routine 07/17/2019 4:09 PM HYDROLOGY TECHNICIAN Encounter for hepatitis C screening test for low risk patient from Last 3 Months or Most Recently Relevant to Health Maintenance Results * Pulmonary Function Test - (09/08/2024 10:31 AM HYDROLOGY TECHNICIAN) Anatomical Region Laterality Modality PFT 09/08/2024 9:43 AM HYDROLOGY TECHNICIAN Narrative 09/08/2024 5:31 PM HYDROLOGY TECHNICIAN PFT performed at:-[facility] Spirometry shows mild obstruction. Positive for significant bronchdilator response. Lung volumes with no restrictive lung disease. Elevated RV suggests air trapping. No diffusion impairment. Normal inspiratory flow loop. Electronically signed by Linda Cuenca MD Loni Morales DO PFT ORDERABLES Final Result * Screening Mammogram Bilateral W Dylon (09/08/2024 9:58 AM HYDROLOGY TECHNICIAN) Anatomical Region Laterality Modality Breast Bilateral Mammography 09/08/2024 12:3 5 PM HYDROLOGY TECHNICIAN Impressions 09/08/2024 12:35 PM HYDROLOGY TECHNICIAN There is no mammographic evidence of malignancy. A 1 year screening mammogram is recommended. BI-RADS: 2 - Benign. The patient has been or will be contacted. The patient will be entered into a reminder system with a target due date of 1 year for her next mammogram. Electronically signed by: Slim Hurtado M.D. Narrative 09/08/2024 12:35 PM HYDROLOGY TECHNICIAN EXAMINATION: SCREENING MAMMOGRAM BILATERAL W DYLON ORDERING [...] There has been no suspicious interval change. us Loni Morales DO IMG MAMMO PROCEDURES F inal Result * Stool DNA - Cologuard (06/09/2020 8:25 PM HYDROLOGY TECHNICIAN) Stool DNA - Cologuard Negative Not Applicable [facility] (CLIA #:[id number]) Comment: A negative result indicates a low [...] screened with both Cologuard and colonoscopy. (Janneth Perez al, N Engl J Med 2014;370(14):7589-7743) The normal value (reference range) for this assay is negative. COLOGUARD RE-SCREENING RECOMMENDATION: Periodic routine colorectal cancer screening is an important part of preventive healthcare for asymptomatic persons at average risk for colorectal cancer. Following a negative Cologuard result, the [place] Cancer Society and U.S. Multi-Society Task Force screening guidelines recommend a Cologuard re-screening interval of 3 years. References: [place] Cancer Society (ACS). Colorectal cancer prevention and early detection. [place], [place]: [place] Cancer Society; [updated 2016 Nov 05]. https://www.cancer.org/cancer/kmcfm-vrjkvg-ygqphw/qpexsbtgs-xgbqkznzn-ngbtmhm/ac s-rec ommendations.html. Accessed March 14, 2018; Segundo DK, Jayjay MAYS, Lauren AlejandroK, Colorectal Cancer Screening: Recommendations for Physicians and Patients from the U.S. Multi-Society Task Force on Colorectal Cancer Screening, Am J Gastroenterology 2017; 112:2274-4612. TEST TYPE: Composite algorithmic analysis of stool [...] interval of every 3 years by the [place] Cancer Society and U.S. Multi-Society Task Force. [...] can be accessed at the following location: www.[employer].[place]/results. Additional description of the Cologuard test process, warnings and precautions can be found at www.cologuardtest.com. Rx only. Stool 06/09/2020 8:25 PM HYDROLOGY TECHNICIAN 06/11/2020 1:06 PM HYDROLOGY TECHNICIAN us Mary Marks [employer] LAB BODY FLUIDS AND STOOLS ORDERABLES Final Result [facility] (CLIA #:[id number]) [place] [address] * Hepatitis C antibody (07/17/2019 4:09 PM HYDROLOGY TECHNICIAN) Hep C Ab Negative Negative EDDI PILLAI (ARISTEO) Comment:Testing performed by : [facility], [address] [place] [address], [place]., [address] Blood specimen (specimen) 07/17/2019 4:09 PM HYDROLOGY TECHNICIAN 07/18/2019 6:45 PM HYDROLOGY TECHNICIAN us Mary Marks NP LAB MICROBIOLOGY - GENERAL ORDERABLES Final Result Performing Organization Address City/[facility]/ZIP Co de Phone Number EDDI PILLAI (ARISTEO) 1 [facility] [place] [address] from Last 3 Months or Most Recently Relevant to Health Maintenance Insurance [id number] PLUS [facility] CHOICE PLUS Member Subscriber Plan / Payer (Ef fective 2021-Present) Name:Norma Banuelos Relation to Subscriber:Self Name:Norma Banuelos Payer ID:[id number] ([facility]) Type:[facility] HMO/PPO Address: [place] [phone] Care Teams Toolsmith Relationship Specialty Start Date End Date Loni Morales DO [address] [place] [address] PCP - General Family Medicine 11/17/24 "
--- OUTSIDE RECORDS SUMMARY | 2024-11-24 16:35 | XMS_ITS | Clinical Summary ---
Author Organization [facility] Address [address] [place] [address] Care Team Providers Care Icu Nurse Name Role Phone Loni Morales DO Primary Care Provider [phone] Source Comments [employer] [facility],non-owned Affiliates and Associated Physician Practices is amultiple site organization consisting of ambulatory clinics and hospital sitesin [place], [place], [place] and [place]. This disclosure is being madepursuant to the Care Everywhere program and may not contain all information available regarding this patient. Last updated 18.[employer] Allergies No known active allergies Medications * Be aware that medications may not be up to date on this document. Alwaysverify current medications with the patient. acetaminophen (Tylenol) 325 MG tablet Take 2 (two) tablets by mouth every 6 hours as needed Active albuterol HFA (Proventil; Ventolin; Proair) 108 (90 Base) MCG/ACT inhaler Inhale 2 (two) puffs by mouth every 4 hours as needed 07/02/2024 Active allopurinol (Zyloprim) 100 MG tablet Take 1 (one) tablet by mouth once daily Active lisinopril (Prinivil; Zestril) 20 MG tablet Take 1 (one) tablet by mouth once daily Active metoprolol tartrate IR (Lopressor) 25 MG tablet Take 1 (one) tablet by mouth 2 times daily Active NIFEdipine CR 24hr (Adalat CC) 90 MG tablet Take 1 (one) tablet by mouth once daily On an empty stomach. 09/28/2024 Active Spiriva Respimat 2.5 MCG/ACT inhaler Inhale 2 (two) puffs by mouth once daily 06/23/2024 Active Encounters Date Type Department Care Team Description 10/23/2024 Telephone [facility] [address] [place], [place] [id number] Karri Pepper, DO Physical Therapy 10/21/2024 11:20 AM CDT Office Visit [facility] [address], [address] [id number] Karri Pepper, DO Acute meniscal tear of left knee, initial encounter (Primary Dx) from Last 3 Months Social History Tobacco Use Types Packs/Day Years Used Date Smoking Tobacco: Never Assessed Comments Unknown Sex and Gender Information Value Date Recorded Sex Assigned at Not on file Legal Sex Female 11:27 AM CDT Gender Identity Not on file Sexual Orientation Not on file Plan of Treatment Health Maintenance Due Date Last Done Comments COLON MONITORING 1964 COLONOSCOPY - COLON CA SCREENING 1964 CT COLONOGRAPHY - COLON CA SCREENING 1964 FIT - COLON CA SCREENING 1964 FLEX SIG - COLON CA SCREENING 1964 PAP SMEAR 1964 HIV SCREENING 11/10/1979 DTAP/TDAP/TD VACCINES (1 - Tdap) 11/10/1983 PNEUMOCOCCAL VACCINE 50+ (1 of 1 - PCV) 2014 ZOSTER VACCINE (1 of 2) 2014 COVID-19 VACCINE (2 - season) 2024 07/20/2020 DEPRESSION SCREENING 07/15/2024 COLOGUARD (AGES 45-75) - COLON CA SCREENING 08/31/2026 08/31/2023 Colorectal Cancer Screening 08/31/2026 MAMMOGRAM 09/08/2026 09/08/2024, 02/11/2024, 09/08/2024, Additional history exists LIPID TESTING 10/13/2029 10/13/2024 Respiratory Syncytial Virus (RSV) Vaccine Pt: or over 60 yrs (1 - 1-dose 75+ series) 11/10/2039 INFLUENZA VACCINE Completed 04/14/2024, , 04/28/2020, Additional history exists HEPATITIS C SCREENING Completed 10/13/2024 HEPATITIS B VACCINE Aged Out No longe r eligible based on patient's age to complete this topic HIB VACCINE Aged Out No longer eligi ble based on patient's age to complete this topic HPV VACCINE Aged Out No longer eligi ble based on patient's age to complete this topic MENINGOCOCCAL (Group B) VACCINE SHARED DECISION-MAKING Aged Out No longer eligible based on patient's age to complete this topic MENINGOCOCCAL GROUPS A/C/Y/W VACCINE Aged Out No longer eligible based on patient's age to complete this topic Insurance Care Teams Icu Nurse Relationship Specialty Start Date End Date Loni Morales DO [address], [address] [place] [address] PCP - General 10/21/24
[2024-11-24 16:50] LABS: Hematocrit 42.4 % (37.0-47.0); Hemoglobin 13.5 g/dL (12.0-15.0)
[2024-11-24 17:00] LABS: Anion Gap 6 mmol/L (4-12); Blood Urea Nitrogen 23 mg/dL (7-17); Calcium 9.3 mg/dL (8.4-10.2); Carbon Dioxide 30 mmol/L (22-30); Chloride 100 mmol/L (98-107); Estimated Glomerular Filt Rate > 60; Glucose 142 mg/dL (65-110); Sodium 136 mmol/L (137-145)
== END 2024-11-24 16:31 | disposition home or self-care (01) ==
PROVIDERS: PCP Family Medicine; Visit Provider Obstetrics & Gynecology
DX: Z01.818 Encounter for other preprocedural examination (principal); N92.6 Irregular menstruation, unspecified; Z79.899 Other long term (current) drug therapy
CPT/HCPCS: 36415; 80048; 85014; 85018

== ENCOUNTER 2024-11-27 00:18 | Day surgery (SDC) | payer OTHER, SELFPAY ==
[2024-11-20 08:17] VITALS: BMI 41.2
--- NOTE | 2024-11-20 08:24 | PC.NURSE ---
Report to the Outpatient Waiting Room, entrance under the green pavilion located off [facility], at time _0815_ on date _[id number]_. Planned Procedure Time: _1015_. Time changes happen often and if your time is changed the preop area will call you the afternoon before. - You and your visitor will be asked to self-screen and do not enter if you have any COVID symptoms. Please call surgeon if you need to reschedule. - A mask is optional within the hospital at this time. Patients may have clear liquids (water, carbonated beverages, clear teas, apple juice) until 3 hours prior to surgery with a maximum of 20 ounces. - No food from midnight until time of surgery and no smoking, or chewing tobacco (or any form of nicotine). No chewing gum, candy or mints. Take only the following medications with a SIP of water on the morning of surgery: __Nifedipine and Metoprolol___ DO NOT STOP ANY OF YOUR OTHER PRESCRIPTION MEDICATIONS PRIOR TO SURGERY EXCEPT THE FOLLOWING Hold all vitamins and supplements for 3 days per anesthesiologist. Medications to discontinue per physician Date to take last rbef___[id number]___ Please no make-up, nail greek, hairspray, perfume, deodorant, or body powder the day of surgery. No jewelry (including any body piercings) or valuables the day of surgery, leave them at home. Please take a shower or bath the night before, or the morning of, surgery with an antibacterial soap. Wear comfortable, loose fitting clothing. - Jewelry must be removed prior to entering the operating room. Rings and piercings that are not removed may be cut off. - The hospital will not accept responsibility for valuables. - Please leave all valuables, including medications, at home the day of surgery. If you are going home after surgery, a licensed dray truck driver must drive you home. - NO public transportation without another adult if you receive anesthesia. - We recommend that an adult stay with you for 24 hours following discharge. - We also recommend that you do not drive, make important decision, drink alcoholic beverages, or take any drugs that were not prescribed by your health care provider for at least 24 hours after your discharge time. Follow any additional instructions given to you from your surgeon. Telephone instructions given to __Norma__and asked if any additional questions and then verbalized understanding. Patient advised to call surgeon office or pre surgery nurse liaison [phone] if any additional questions.
--- NOTE | 2024-11-26 08:01 | P.HP_ITS ---
H&P: HPI History of Present Illness Date/Time: 11/26/24 08:01 Chief Complaint: Postmenopausal bleeding Narrative: 59-year-old 1 para 1 admitted for hysteroscopy dilatation curettage secondary to postmenopausal bleeding. She has not taken hormones have this vaginal bleeding. Risks and benefits of the procedure reviewed in full. She reviewed see the [employer] handouts entitled hysteroscopy as well as dilatation curettage. She had all questions answered. She asked to proceed PMFSH Social History Social History Years smoked: 25 Smoking status: Former smoker Tobacco type: cigarettes Smoking end date: 11/20/10 Living arrangements: with family Spiritual care concerns: No Meds Home Medications and Allergies Home Medications Medication Instructions Recorded Confirmed Type acetaminophen 325 mg tablet 325 mg PO Q6H PRN pain 11/20/24 11/20/24 History (Aminofen) allopurinol 100 mg tablet 100 mg PO DAILY 11/20/24 11/20/24 History cholecalciferol (vitamin D3) 50 2,000 unit PO DAILY 11/20/24 11/20/24 History mcg (2,000 unit) capsule (Vitamin D3) hydrochlorothiazide 12.5 mg tablet 12.5 mg PO DAILY 11/20/24 11/20/24 History lisinopril 40 mg tablet 40 mg PO DAILY 11/20/24 11/20/24 History magnesium 250 mg tablet 250 mg PO DAILY 11/20/24 11/20/24 History metoprolol tartrate 50 mg tablet 25 mg PO BID 11/20/24 11/20/24 History nifedipine 90 mg tablet,extended 90 mg PO DAILY 11/20/24 11/20/24 History release Allergies Allergy/AdvReac Type Severity Reaction Status Date / Time No Known Allergies Allergy Verified 11/20/24 08:13 Exam Const: General: cooperative, healthy appearing, comfortable and obese Orientation/consciousness: oriented to person, oriented to place and oriented to time HENMT: Head: normal to inspection Resp: Effort & Inspection: normal respiratory effort Cardio: Rate: regular rate Rhythm: regular rhythm Heart sounds: S1 normal heart sound present and S2 normal heart sound present GI: Inspection: normal to inspection : External Female Exam: normal external appearance Speculum Exam - Vagi na: normal appearance of the vagina Speculum Exam - Cervix: normal appearance of the cervix Bimanual exam- vagina & uterus: normal bimanual exam Assessment and Plan Assessment and plan (1) Postmenopausal bleeding: Code(s): N95.0 - Postmenopausal bleeding Status: Acute Plan Proceed with hysteroscopy/dilatation curettage
--- OUTSIDE RECORDS SUMMARY | 2024-11-27 00:26 | XMS_ITS | Clinical Summary ---
Author Organization [facility] Address [address] [place] [address] Care Team Providers Care Wet Wash Assembler Name Role Phone Loni De Leon DO Primary Care Provider [phone] Allergies No known active allergies Medications allopurinol [...] STARTER ) Active lisinopril (PRINIVIL) 40 MG tabletIndications: Primary hypertension,Type 2 diabetes mellitus with hyperglycemia, without long-term current use of insulin ([facility]) Take 1 tablet (40 mg total) by mouth daily. 90 tablet 1 5 04/11/20 25 Active acetaminophen (TYLENOL) 325 MG tablet Take 2 tablets (650 mg total) by mouth every 6 (six) hours as needed. Active albuterol sulfate HFA 108 (90 Base) MCG/ACT inhaler Inhale 2 puffs into the lungs every 4 (four) hours as needed. 4 Active hydroCHLOROthiazid e (MICROZIDE) 12.5 MG tabletIndications: Primary hypertension Take 1 tablet (12.5 mg total) by mouth every morning. 90 tablet 5 02/08/20 25 Active rosuvastatin (CRESTOR) 5 MG tabletIndications: Type 2 diabetes mellitus with stage 2 chronic kidney disease, without long-term current use of insulin ([facility]),Mixed hyperlipidemia Take 1 tablet (5 mg total) by mouth nightly at bedtime for 30 days. 30 tablet 5 12/27/19 25 Active metFORMIN (GLUCOPHAGE) 500 MG tabletIndications: Type 2 diabetes mellitus with stage 2 chronic kidney disease, without long-term current use of insulin ([facility]) Take 1 tablet (500 mg total) by mouth 2 (two) times daily with meals. 180 tablet 5 02/25/20 25 Active hydroCHLOROthiazid e (MICROZIDE) 12.5 MG tablet Take 1 tablet (12.5 mg total) by mouth every morning. 11/10/19 25 Discontin ued(Reord er) Active Problems Problem Noted Date Diagnosed Date Immunization declined 11/26/2024 Assessment & Plan (11/26/2024 8:16 AM CDT): Discussed with patient that she is due for shingles vaccine, pneumonia vaccine, Tdap and RSV vaccine. She declined vaccines. Submucous leiomyoma of uterus 2024 Overview (2024): Transvaginal ultrasound 10/29/2024 showed uterine fibroid 2.1 cm, has submucosal extension Assessment & Plan (2024 2:04 PM CDT): Pap with cotesting negative. Transvaginal ultrasound returned showing leiomyoma. Endometrial thickness was not enlarged. Will refer to ENGINEER SOILS as patient may need endometrial biopsy. Need for stnftfmbbd-heonkdc-tcuzpxphy (Tdap) vac cine 2024 Overview (2024): 2024: Patient unsure of when last Tdap was given or where Assessment & Plan (11/26/2024 8:15 AM CDT): She is unsure of when last Tdap was given or aware. Recommended that we proceed with Tdap however she said not today . Assessment & Plan (2024 2:15 PM CDT): [...] thickness was not enlarged. Will refer to ENGINEER SOILS as patient may need endometrial biopsy. Assessment & Plan (10/29/2024 2:33 PM CDT): She is at increased risk of endometrial cancer due to her obesity and other risk factors. Pelvic exam as well as Pap with HPV was performed including the use of a speculum and veneer manufacturer medical assistant internal medicine Alondra was present for entire pelvic and breast exam. No significant abnormality present on physical exam other than uterine bleeding appearing from cervix and tenderness to palpation of left adnexa on bimanual exam. Stat transvaginal ultrasound ordered to evaluate uterus and adnexa and pelvis. Patient would like to have this done at [facility]. Assessment & Plan (10/13/2024 7:54 AM CDT): [...] day. Elevated alkaline phosphatase level 10/13/2024 Overview (11/26/2024): 07/02/2024 ALKALINE PHOSPHATASE S/P/B 46 - 118 U/L 119 High 10/13/2024 ALKALINE PHOSPHATASE S/P/B 46 - 118 U/L 126 High Component Ref Range & Units 10/13/24 0752 GGT 5 - 55 U/L 79 High 11/26/2024: She reports she has liver ultrasound ordered. Assessment & Plan (11/26/2024 8:23 AM CDT): Awaiting completion of liver ultrasound and results. Assessment & Plan (2024 2:05 PM CDT): [...] 30.9 Assessment & Plan (07/02/2024 4:54 PM CUSTOMS HOUSE BROKER): Records requested from previous PCP Class 3 severe obesity with serious comorbidity and body mass index (BMI) of 40.0 to 44.9 in adult, unspecified obesity type 07/02/2024 Overview (07/16/2024): Initial visit 07/02/2024: She reports she does not follow a particular diet at this time. Assessment & Plan (11/26/2024 8:10 AM CDT): Stable from last visit. Assessment & Plan (07/16/2024 5:23 PM CUSTOMS HOUSE BROKER): Counseled on the importance of weight loss in relation to her diabetes diagnosis and hypertension diagnosis. Counseled that we could add GLP-1 medication especially in the setting of her diabetes mellitus however she is not interested at this time. She was still communicated the importance of exercise and diet extensively. Assessment & Plan (07/02/2024 4:52 PM CUSTOMS HOUSE BROKER): BMI is communicated to and discussed with patient. Family history of coronary artery disease 2023 Overview (07/02/2024): Multiple family members Family history of hypertension 07/02/2024 Type 2 diabetes mellitus wit h stage 2 chronic kidney disease, without long-term current use of insulin ([facility]) 07/02/2024 Overview (11/26/2024): Regimen: None Hemoglobin A1c: 6.5% (10/13/2024) Eye exam: Had appointment with [facility] 11/10/2024 which showed no diabetic retinopathy and to return in 1 year Microalbumin/creatinine: 14, 10/13/2024 ; On YANG currently lisinopril 40 mg daily Microfilament: Due; Not following with podiatry Statin: Reports she had myalgias when previously trialing Lipitor and Crestor Initial visit 07/02/2024: Hemoglobin A1c 7.0% 12/2023 [...] appointment with [facility] tomorrow, 11/10/2024 11/26/2024: She reports she has not tried metformin or other medication for diabetes in the past. Assessment & Plan (11/26/2024 8:08 AM CDT): Will start metformin. She was counseled on side effects of medication. Patient was written and explained instructions for titration of metformin: Week 1: Take 1/2 tablet (250mg) with a meal once daily Week 2: Take 1/2 tablet (250mg) with a meal twice daily Week 3: Take 1 tablet (500mg) with a meal once daily and take 1/2 tablet (250mg) with a meal once daily Week 4: Take 1 tablet (500mg) with a meal twice daily Patient can stop titrating up and stay at current dose or titrate down to previous dose if symptoms are prominent. Patient is counseled on potential symptoms that she may experience with medication such as flatulence, bloating, abdominal cramping and that this can happen due to the mechanism of action of the medication. She declined referral to early childhood educator aide. Assessment & Plan (2024 2:14 PM CDT): Will plan to request records after patient's eye exam. Assessment & Plan (10/13/2024 7:56 AM CDT): A1c and CMP ordered to be completed today Assessment & Plan (07/16/2024 5:24 PM CUSTOMS HOUSE BROKER): Discussed with patient that I recommend starting medication therapy with metformin. She would like to have a trial to attempt to diet controlled diabetes. She is counseled extensively and at length regarding nutrition and recommended to obtain key carrier/nutrition professional to give her advice. I am more than happy to place referral if she would like/needs a specific referral. She is also counseled regarding importance of aerobic and anaerobic/weight training exercise. Recommended to work with personal consultant. Counseled to decrease overall carbohydrate intake and [...] low. Assessment & Plan (07/02/2024 4:50 PM CUSTOMS HOUSE BROKER): Hemoglobin A1c and CMP ordered today Patient encouraged to have dilated eye exam annually. Hemoglobin A1c 6.5% and fasting blood glucose elevated at 160 returned after patient visit. I would like to initiate diabetes medication treatment at upcoming appointment which was communicated to patient via [employer]. History of spleen injury 07/02/2024 Overview (07/02/2024): She reports she had splenic laceration Family history of COPD (prosthetic aides teacher osiel obstructive pulmonary disease) 07/02/2024 Cigarette nicotine dependence in remission 07/02 History of ectopic 07/02/2024 Overview (07/02/2024): She reports she has had 2 ectopic pregnancies in the past Stage 2 chronic kidney disease 07/02/2024 Overview (07/16/2024): 07/02/2024: She reports she previously saw a child and adolescent therapist. 07/16/2024: Decreased GFR of 77 on 07/02/2024 Assessment & Plan (10/13/2024 7:37 PM CDT): Repeat renal function completed today GFR: 84, 10/13/2024 Urine microalbumin to creatinine ratio: 14, 10/13/2024 YANG/ARB: Lisinopril Assessment & Plan (07/16/2024 5:27 PM CUSTOMS HOUSE BROKER): Counseled patient that decreased GFR is likely related to diabetes/hypertension. Also patient reports her fluid intake is not that good right now which dehydration can be a component of decreased GFR. Will recheck GFR in September 2024. Also waiting for previous records. Assessment & Plan (07/02/2024 5:03 PM CUSTOMS HOUSE BROKER): CMP ordered and showed estimated GFR 77. Suspect CKD stage II however we will need further information. Family history of alcohol abuse and dependence 1 09/02/2023 Centrilobular emphysema ([facility]) 2016 Overview (07/16/2024): Initial visit 07/02/2024: She has history of cigarette smoking. She reports her last pulmonary function testing was completed approximately 2015. Per chart review patient previously saw abattoir manager Dr. Ned Mauro however is no longer following with. She is currently using Spiriva Respimat 2 puffs daily and albuterol inhaler as needed. Assessment & Plan (07/16/2024 5:17 PM CUSTOMS HOUSE BROKER): Discussed with patient that I would like to repeat pulmonary function testing. She is agreeable I would like to have done at [facility] in [place], [place]. If continues to show COPD/emphysema on PFT, we will plan to escalate to triple therapy with Trelegy or Breztri. Assessment & Plan (07/02/2024 4:52 PM CUSTOMS HOUSE BROKER): Discussed with patient that she is needs to be on triple therapy either Breztri or Trelegy. She likely needs to have repeat pulmonary function testing. Mixed hyperlipidemia 03/18/2014 Overview (11/26/2024): Initial visit 07/02/2024: Patient reports she is trialed multiple statin medications. She reports she tried ezetimibe and . Previous lipid panel per chart review 07/17/2019 Total cholesterol: 319 Triglycerides: 284 HDL: 50 LDL: 212 Non-HDL cholesterol: 269 Cholesterol/HDL ratio: 6 11/26/2024: She reports she traveled [facility] [employer] [facility] unknown doses for unknown length of time each once. She reports she tried ezetimibe twice with Dr. Hernandez. She reports she also tried another medication and she experienced diarrhea. Assessment & Plan (11/26/2024 8:09 AM CDT): As we are unsure of patient's experience in doses with trialing medication prior. We will trial rosuvastatin 5 mg once every other day and monitor for side effects. Patient counseled that she has increased risk of heart attack and/or stroke. She has previously had stroke. Discussed with patient that I recommend she have CT calcium score completed. This test was ordered. She was counseled this is generally an [id number] cost. We may be able to get Repatha for patient. Assessment & Plan (07/02/2024 2:15 PM CUSTOMS HOUSE BROKER): Patient counseled at length regarding importance of cholesterol-lowering medication therapy especially as her LDL cholesterol is greater than 190 and she has had history of stroke and a significant family history of coronary artery disease. History of stroke 11/28/2013 Overview (07/16/2024): History of CVA (cerebrovascular accident) 2010 - no residual - no bleed, secondary to HTN She was seeing child and adolescent therapist but hasn't seen anyone in a while No residual effects from stroke 07/16/2024: She reports she was on daily aspirin for a long time however discontinued as she kept having multiple bruises appear on her body. Assessment & Plan (11/26/2024 8:16 AM CDT): She is counseled that in the setting of her previous stroke, she should be taking aspirin 81 mg daily. Assessment & Plan (07/02/2024 4:54 PM CUSTOMS HOUSE BROKER): She is currently on antihypertensive therapy however is not on aspirin therapy. Primary hypertension 11/28/2013 Overview (11/26/2024): Regimen: lisinopril 20mg daily, metoprolol titrate 25 mg twice daily, hydrochlorothiazide 12.5 mg daily and nifedipine XL 90mg daily GFR: 84, 10/13/2024. 77, 07/02/2024. Urine microalbumin to creatinine ratio: 14, 10/13/2024 Blood pressure monitoring device at home: YES, arm cuff Initial visit 07/02/2024: On lisinopril 20mg daily, [...] hydrochlorothiazide 12.5 mg daily and feels swollen 11/26/2024: She reports she started taking hydrochlorothiazide again. She reports her blood pressure recently at back order clerk office was more appropriate. Assessment & Plan (11/26/2024 8:16 AM CDT): Blood pressure fairly appropriate in office today. Continue current medications. Recommend patient use arm cuff blood pressure monitoring device at home and take blood pressure measurements at home and then bring in device and log to next appointment. Assessment & Plan (2024 2:12 PM CDT): [...] time. Assessment & Plan (07/16/2024 5:18 PM CUSTOMS HOUSE BROKER): Blood pressure continues to remain slightly elevated. Continue current blood pressure regimen. Patient is again to monitor blood pressure. If patient loses weight, I suspect her blood pressure will improve and she may be able to discontinue some medication. Assessment & Plan (07/02/2024 2:16 PM CUSTOMS HOUSE BROKER): Encouraged to take blood pressure measurements at [...] negative. Assessment & Plan (07/02/2024 4:55 PM CUSTOMS HOUSE BROKER): Patient counseled that symptoms are likely result [...] Encounters Date Type Department Care Team Description 11/26/2024 7:40 AM CDT Office Visit [facility] [place] [address] [facility] [address] [place] [address] Loni De Leon, Diabetes; Hypertension 11/26/2024 Travel 11/11/2024 Telephone [facility] [place] [id number] [facility] [address] [place] [address] Loni De Leon, DO Record Request 2024 1:40 PM CDT Office Visit [place] [id number] [place] [address] Loni De Leon, DO Results (No questions or concerns. /) 2024 Travel 11/05/2024 Results Follow-Up [facility] [address] [facility] [place] [address] Loni De Leon, DO Cytopath Cerv/Vag Thin Layer, HUMAN PAPILLOMAVIRUS, HIGH-RISK TYPES 10/29/2024 1:40 PM CDT Office Visit [place] [id number] [facility] [address] [place] [address] Loni De Leon, DO Covering Machine Operator Exam (Pt states she has been having abnormal bleeding and cramping for 3 months. // pt is post menopausal. /) 10/29/2024 10:06 AM CDT - 10/29/2024 11:59 PM CDT Hospital Encounter [facility] [address] [facility] [place] [address] Loni De Leon, DO Discharge Disposition: Home or Self Care (Routine Discharge) 10/29/2024 Scan HEALTH INFO SRVCS Scanned, Doc [facility] Ultrasound (SCAN) 10/29/2024 Travel 10/28/2024 Telephone [facility] [place] [address] [facility] [address] [place] [address] Loni De Leon, DO Concerns 10/15/2024 Telephone [facility] [address] [address] Husam Evangelista MD Information 10/13/2024 7:20 AM CDT [facility] [place] [address] [place] [address] Loni De Leon, DO Follow Up 10/13/2024 - 10/13/2024 11:59 PM CDT [facility] [address] [place] [address] Loni De Leon, DO Discharge Disposition: Home or Self Care (Routine Discharge) 10/13/2024 Telephone [facility] [address] [facility] [address] [place] [address] Loni De Leon, DO Record Request 10/13/2024 Orders Only [facility] [address] [facility] [address] [facility] [address] [place] [address] Alondra Hernandez MA 10/13/2024 Travel 10/09/2024 Telephone [facility] [address] [place] [address] Loni De Leon, DO Results 10/06/2024 8:50 AM CDT - 10/06/2024 11:59 PM CDT Hospital Encounter [facility] [address] [place] [address] Linda Correa, PICK UP TRUCK DRIVER Discharge Disposition: Home or Self Care (Routine Discharge) 10/06/2024 Travel 10/01/2024 MyChart Message Enc [facility] [address] [place] [address] [address] [place] [address] [facility], [facility] Provider xray results 10/01/2024 Telephone [facility] [address] [place] [address] Loni De Leon, Results 09/29/2024 3:00 PM CDT Office Visit [facility] [address] [place] [address] Loni De Leon, DO Knee Pain (Pt is having left knee pain. /Pt states it started a few weeks ago. /No trauma. /Started mild and has gotten worse. /Pt has been taking tylenol and using ice. /Worse at night. /Pt has not had xrays. /) 09/29/2024 Travel 09/08/2024 Scan HEALTH INFO SRVCS Scanned, Doc [facility] PFT (SCAN); Mammogram (SCAN) from Last 3 Months Immunizations Immunization Administration Dates Next Due Fluzone Intradermal Quad (IIV4) 06/13/2016 Hepatitis B (Generic: Adult) 07/24/2016 Influenza (Generic) 04/14/2024,,04/14/2019,2016,05/14/2013 Influenza Adult (Generic) 05/06/2023 MMR (MMRII) 07/17/2016 PFIZER COVID-19 (ORIGINAL FORMULATION, PURPLE CAP) mRNA, LNP-S, [...] Smoking Tobacco: Former Cigarettes 0.5 26 1 5 - 2010 Passive Smoke Exposure: Past Smokeless Tobacco: Never Tobacco Cessation:Counseling Given: No Alcohol Use Standard Drinks/Week Comments Not Currently 0 (1 standard drink = 0.6 oz pur e alcohol) PHQ-2 Answer Date Recorded Patient Health Questionnaire-2 Score 0 07/16/2024 Comments No Sex and Gender Information Value Date Recorded Sex Assigned at Female 09/29/2024 2:22 PM CDT Legal Sex Female 12:45 PM CUSTOMS HOUSE BROKER Gender Identity Female 09/29/2024 2:22 PM CDT Sexual Orientation Not on file Last Filed Vital Signs Vital Sign Reading Time Taken Comments Blood Pressure 126/82 11/26/2024 8:10 AM CDT Pulse 73 11/26/2024 7:47 AM CDT Temperature 36.7 C (98.1 F) 11/26/2024 7:47 AM CDT Respiratory Rate 18 11/26/2024 7:47 AM CDT Oxygen Saturation 94% 11/26/2024 7:47 AM CDT Inhaled Oxygen Concentration - - Weight 102.9 kg (226 lb 12.8 oz) 11/26/2024 7:47 AM CDT Height 157.5 cm (5' 2 ) 11/26/2024 7:47 AM CDT Body Mass Index 41.48 11/26/2024 7:47 AM CDT Plan of Treatment Upcoming Encounters Date Type Department Care Team (Late st Contact Info) Description 11/30/2024 4:[address] [facility] [address] [place] [address] Loni De Leon, DO [address] [facility] [address] [facility] [place] [address] 12/24/2024 7:40 AM CDT Office Visit [facility] - [place] [address] [facility] [address] [place] [address] Loni De Leon, DO [address] [place] [address], [address] [place] [address] Health Maintenance Due Date Last Done Comments [...] Cancer Screening with HPV 10/29/2029 PHQ-2 (Physician [place]) Completed 07/16/2024 Hepatitis C Completed 10/13/2024 Meningococcal [...] hyperglycemia, without long-term current use of insulin ([facility]CC) ALBUMIN URINE RANDOM W/CREATININE Routine 10/13/2024 7:52 AM CDT Primary hypertension Type 2 diabetes mellitus without complication, without long-term current use of insulin (CMS/[facility]CC HHS/HCC) URINALYSIS, AUTO, COMPLETE Routine 10/13/2024 7:52 AM CDT Primary hypertension Type 2 diabetes mellitus without complication, without long-term current use of insulin (CMS/HCC HHS/HCC) Class 3 severe obesity with serious [...] (10/29/2024 12:36 PM CDT) THIN PREP PAP [address] [address] Department of Pathology Pathology Report CERVICAL/VAGINAL PAP SMEAR REPORT Name: NORMA BANUELOS Age: 4 1965 (Age: 58) Location: [facility] Sex: F Collected Date: 10/29/2024 [facility] #: [id number] Date Received: 10/30/2024 Date Reported: 11/05/2024 Provider: LONI DE LEON INTERPRETATION ABNORMAL RESULT CERVICAL/ENDOCERVI ALEKSANDR: SATISFACTORY FOR EVALUATION. ENDOCERVICAL/TRANS FORMATION ZONE COMPONENT PRESENT. ENDOMETRIAL CELLS PRESENT (POSTMENOPAUSAL). NEGATIVE FOR SQUAMOUS INTRAEPITHELIAL LESION [id number]|2024-11-26 08:01:00|2024-11-26 08:01:00|PM.IMHP||||"H&P: HPI History of Present Illness Date/Time: 11/26/24 08:01 Chief Complaint: Postmenopausal bleeding Narrative: 59-year-old 1 para 1 admitted for hysteroscopy dilatation curettage secondary to postmenopausal bleeding. She has not taken hormones have this vaginal bleeding. Risks and benefits of the procedure reviewed in full. She reviewed see the ACOG handouts entitled hysteroscopy as well as dilatation curettage. She had all questions answered. She asked to proceed [facility] Social History Social History Years smoked: 25 Smoking status: Former smoker Tobacco type: cigarettes Smoking end date: 11/20/10 Living arrangements: with family Spiritual care concerns: No Meds Home Medications and Allergies Home Medications Medication Instructions Recorded Confirmed Type acetaminophen 325 mg tablet 325 mg PO Q6H PRN pain 11/20/24 11/20/24 History (Aminofen) allopurinol 100 mg tablet 100 mg PO DAILY 11/20/24 11/20/24 History cholecalciferol (vitamin D3) 50 2,000 unit PO DAILY 11/20/24 11/20/24 History mcg (2,000 unit) capsule (Vitamin D3) hydrochlorothiazide 12.5 mg tablet 12.5 mg PO DAILY 11/20/24 11/20/24 History lisinopril 40 mg tablet 40 mg PO DAILY 11/20/24 11/20/24 History magnesium 250 mg tablet 250 mg PO DAILY 11/20/24 11/20/24 History metoprolol tartrate 50 mg tablet 25 mg PO BID 11/20/24 11/20/24 History nifedipine 90 mg tablet,extended 90 mg PO DAILY 11/20/24 11/20/24 History release Allergies Allergy/AdvReac Type Severity Reaction Status Date / Time No Known Allergies Allergy Verified 11/20/24 08:13 Exam Const: General: cooperative, healthy appearing, comfortable and obese Orientation/consciousness: oriented to person, oriented to place and oriented to time HENMT: Head: normal to inspection Resp: Effort & Inspection: normal respiratory effort Cardio: Rate: regular rate Rhythm: regular rhythm Heart sounds: S1 normal heart sound present and S2 normal heart sound present GI: Inspection: normal to inspection : External Female Exam: normal external appearance Speculum Exam - Vagina: normal appearance of the vagina Speculum Exam - Cervix: normal appearance of the cervix Bimanual exam- vagina & uterus: normal bimanual exam Assessment and Plan Assessment and plan (1) Postmenopausal bleeding: Code(s): N95.0 - Postmenopausal bleeding Status: Acute Plan Proceed with hysteroscopy/dilatation curettage"
--- OUTSIDE RECORDS SUMMARY | 2024-11-27 00:26 | XMS_ITS | Clinical Summary ---
Author Organization [facility] Address [address] [place] [id number] Care Team Providers Care Solderer Dipper Name Role Phone Loni Morales DO Primary Care Provider Allergies No known active [...] 07/17/2019 Assessment & Plan (05/17/2020 2:09 PM SENIOR REVENUE ACCOUNTANT): HPI: Condition is stable A&P: Discussed/ordered labs, encouraged healthy, low carbohydrate lifestyle and at least 150min/week of exercise, continue on vit d3 31243 units weekly Assessment & Plan (07/17/2019 3:41 PM SENIOR REVENUE ACCOUNTANT): Pt was out of vit d for multiple months. Class 2 obesity due to exces s calories without serious comorbidity with body mass index (BMI) of 36.0 to 36.9 in adult 06/26/2017 Assessment & Plan (05/17/2020 2:11 PM SENIOR REVENUE ACCOUNTANT): HPI: Condition is stable A&P: Healthy, low [...] in much longer they will become mushy [place] and/or coconut flour instead of regular flour For pizza dough, try fathead pizza dough recipe online. To get a crispy crust, bake on one side for 8-12 min, then flip over and bake on the other side for 8-12 min, then put toppings on and bake until the cheese on top of pizza melts hari recipe online For ice cream, try the brand Enlightened Use PindcAdvantagene for recipe ideas. Type in low carb... Assessment & Plan (07/17/2019 3:03 PM SENIOR REVENUE ACCOUNTANT): Healthy, low carbohydrate lifestyle and exercise for [...] 03/30/2017 Overview (10/13/2020): Patient no longer seeing relationship associate Dr. Ned Mauro Assessment & Plan (05/17/2020 2:10 PM SENIOR REVENUE ACCOUNTANT): HPI: Condition is stable A&P: Discussed/ordered labs, encouraged healthy, low carbohydrate lifestyle and at least 150min/week of exercise, continue on spiriva respimat 2 puff daily, Please consider the albuterol as a rescue only medication. If needing the albuterol more than 2xwk, please contact office. Pt no longer seeing Dr. Mauro (pulmonology) Assessment & Plan (07/17/2019 3:32 PM SENIOR REVENUE ACCOUNTANT): Discussed/ordered labs, Condition is stable, encouraged healthy, low carbohydrate lifestyle and at least 150min/week of exercise, continue on spiriva daily and using albuterol as needed for rescue Pt ran out of spiriva and albuterol about 3 mo ago No longer seeing Dr. Mauro (pul) Hyperlipidemia 03/18/2014 Overview (10/19/2016): Hyperlipidemia Assessment & Plan (05/18/2020 9:47 AM SENIOR REVENUE ACCOUNTANT): HPI: Condition is stable A&P: Discussed/ordered labs, encouraged healthy, low carbohydrate lifestyle and at least 150min/week of exercise, she has tried simvastatin, atorvastatin, zetia- these all caused her legs to feel like lead, gemfibrozil caused excessive diarrhea. Assessment & Plan (07/17/2019 3:40 PM SENIOR REVENUE ACCOUNTANT): Discussed/ordered labs, Condition is stable, encouraged healthy, low carbohydrate lifestyle and at least 150min/week of exercise Pt has been off of diet since April and just started back on her low carb diet a few days ago Hypertension 11/28/2013 Overview (10/17/2016): HTN (hypertension) Assessment & Plan (05/18/2020 9:34 AM SENIOR REVENUE ACCOUNTANT): HPI: Condition is Stable, bp at home has been good 120s/70s A&P: Discussed/ordered labs, encouraged healthy, low carbohydrate lifestyle and at least 150min/week of exercise, pt has no residual effects from stroke. Continue on lisinopril 20mg daily, metoprolol tartrate 25mg twice daily and nifedipine 90mg daily to keep blood pressure under good control Assessment & Plan (07/17/2019 3:02 PM SENIOR REVENUE ACCOUNTANT): Discussed/ordered labs, Condition is stable, encouraged healthy, [...] HTN Assessment & Plan (05/17/2020 2:08 PM SENIOR REVENUE ACCOUNTANT): HPI: Condition is stable A&P: Discussed/ordered labs, encouraged healthy, low carbohydrate lifestyle and at least 150min/week of exercise, pt has no residual effects from stroke. Continue on atorvastatin 10mg daily, lisinopril 20mg daily, metoprolol tartrate 25mg twice daily and nifedipine 90mg daily to keep blood pressure under good control Assessment & Plan (07/17/2019 3:34 PM SENIOR REVENUE ACCOUNTANT): Pt never saw neurology after being released from hospital. She was seeing eap specialist but hasn't seen anyone in a while No residual effects from stroke Gout 09/24/2013 Overview (10/17/2016): Gout Assessment & Plan (05/17/2020 2:06 PM SENIOR REVENUE ACCOUNTANT): HPI: Condition is stable , pt avoids trigger foods and drinks A&P: Discussed/ordered labs, encouraged healthy, low carbohydrate lifestyle and at least 150min/week of exercise, continue on allopurinol 100mg twice daily Last flare summer 2017 Assessment & Plan (07/17/2019 3:35 PM SENIOR REVENUE ACCOUNTANT): Discussed/ordered labs, Condition is stable, encouraged healthy, [...] Department Care Team Description 09/08/2024 9:38 AM SENIOR REVENUE ACCOUNTANT - 09/08/2024 11:59 PM SENIOR REVENUE ACCOUNTANT Hospital Encounter [facility] [address] [place] [id number] Encounter for screening mammogram for malignant neoplasm of breast Discharge Disposition: Discharge to home or self care 09/08/2024 9:34 AM SENIOR REVENUE ACCOUNTANT - 09/08/2024 11:59 PM SENIOR REVENUE ACCOUNTANT Hospital Encounter [facility] [address] [place] [address] Centrilobular emphysema (HCC) Discharge Disposition: Discharge to [...] CVA no bleed. n o residual deficit. 2/2 to htn. 245; Comments: rt arm and [...] History Relation Name Comments Other Brother 1 [place] heart disease.; Cause of : heart disease. [...] Hypertension; Relation Name Status Comments Brother 1 Narayan Brother 2 Ullon Alive Brother 3 ullona [...] on file Legal Sex Female 1:52 AM SENIOR REVENUE ACCOUNTANT Gender Identity Not on file Sexual Orientation [...] Comments Blood Pressure 117/74 05/18/2020 9:23 AM SENIOR REVENUE ACCOUNTANT Pulse 89 07/17/2019 3:25 PM SENIOR REVENUE ACCOUNTANT Temperature 36.8 C (98.2 F) 07/17/2019 3:25 PM SENIOR REVENUE ACCOUNTANT Respiratory Rate 10 07/17/2019 3:25 PM SENIOR REVENUE ACCOUNTANT Oxygen Saturation 96% 07/17/2019 3:25 PM SENIOR REVENUE ACCOUNTANT Inhaled Oxygen Concentration - - Weight 90.7 kg (200 lb) 05/18/2020 9:23 AM SENIOR REVENUE ACCOUNTANT Height 157.5 cm (5' 2 ) 05/18/2020 9:23 AM SENIOR REVENUE ACCOUNTANT Body Mass Index 36.58 05/18/2020 9:23 AM SENIOR REVENUE ACCOUNTANT Plan of Treatment Health Maintenance Due Date [...] FUNCTION TEST (PFT) Routine 09/08/2024 10:31 AM SENIOR REVENUE ACCOUNTANT Centrilobular emphysema (HCC) SCREENING MAMMOGRAM BILATERAL W DYLON Schedule Routine, Read Routine (OP Routine) 09/08/2024 9:58 AM SENIOR REVENUE ACCOUNTANT Encounter for screening mammogram for malignant neoplasm of breast STOOL DNA COLOGUARD Routine 06/09/2020 8:25 PM SENIOR REVENUE ACCOUNTANT Screening for colon cancer HEPATITIS C ANTIBODY Routine 07/17/2019 4:09 PM SENIOR REVENUE ACCOUNTANT Encounter for hepatitis C screening test for low risk patient from Last 3 Months or Most Recently Relevant to Health Maintenance Results * Pulmonary Function Test - (09/08/2024 10:31 AM SENIOR REVENUE ACCOUNTANT) Anatomical Region Laterality Modality PFT 09/08/2024 9:43 AM SENIOR REVENUE ACCOUNTANT Narrative 09/08/2024 5:31 PM SENIOR REVENUE ACCOUNTANT PFT performed at:->[facility] Spirometry shows mild obstruction. Positive for significant bronchdilator response. Lung volumes with no restrictive lung disease. Elevated RV suggests air trapping. No diffusion impairment. Normal inspiratory flow loop. Electronically signed by Linda Cuenca MD us Loni Morales DO PFT ORDERABLES Final Result * Screening Mammogram Bilateral W Dylon (09/08/2024 9:58 AM SENIOR REVENUE ACCOUNTANT) Anatomical Region Laterality Modality Breast Bilateral Mammography 09/08/2024 12:3 5 PM SENIOR REVENUE ACCOUNTANT Impressions 09/08/2024 12:35 PM SENIOR REVENUE ACCOUNTANT There is no mammographic evidence of malignancy. A 1 year screening mammogram is recommended. BI-RADS: 2 - Benign. The patient has been or will be contacted. The patient will be entered into a reminder system with a target due date of 1 year for her next mammogram. Electronically signed by: Slim Hurtado M.D. Narrative 09/08/2024 12:35 PM SENIOR REVENUE ACCOUNTANT EXAMINATION: SCREENING MAMMOGRAM BILATERAL W DYLON ORDERING [...] Stool DNA - Cologuard (06/09/2020 8:25 PM SENIOR REVENUE ACCOUNTANT) Stool DNA - Cologuard Negative Not Applicable [employer] (CLIA #:[id number]) Comment: A negative result indicates a low [...] (Janneth Perez al, N Engl J Med 2014;370(14):5560-6146) The normal value (reference range) for this assay is negative. COLOGUARD RE-SCREENING RECOMMENDATION: Periodic routine colorectal cancer screening is an important part of preventive healthcare for asymptomatic persons at average risk for colorectal cancer. Following a negative Cologuard result, the [place] Cancer Society and U.S. Multi-Society Task Force screening guidelines recommend a Cologuard re-screening interval of 3 years. References: [place] Cancer Society (ACS). Colorectal cancer prevention and early detection. [place], [place]: [place] Cancer Society; [updated 2015Nov 05]. https://www.cancer.org/cancer/xarer-rjamsv-psokcj/pugaeywbm-wnglgsjbh-wpqbogg/ac s-rec ommendations.html. Accessed March 14, 2018; Segundo DK, Jayjay MAYS, Lauren AlejandroK, Colorectal Cancer Screening: Recommendations for Physicians and Patients from the U.S. Multi-Society Task Force on Colorectal Cancer Screening, Am J Gastroenterology 2017; 112:0460-8854. TEST TYPE: Composite algorithmic analysis of stool [...] interval of every 3 years by the [place] Cancer Society and U.S. Multi-Society Task Force. [...] can be accessed at the following location: www.BDS.com.au.ReferBright/results. Additional description of the Cologuard test process, warnings and precautions can be found at www.cologuardtest.com. Rx only. Stool 06/09/2020 8:25 PM SENIOR REVENUE ACCOUNTANT 06/11/2020 1:06 PM SENIOR REVENUE ACCOUNTANT us Mary Marks FITNESS TECHNICIAN LAB BODY FLUIDS AND STOOLS ORDERABLES Final Result [employer] (CLIA #:[id number]) [place] [address] * Hepatitis C antibody (07/17/2019 4:09 PM SENIOR REVENUE ACCOUNTANT) Hep C Ab Negative Negative EDDI PILLAI (ARISTEO) Comment:Testing performed by : [facility], [address] [place] [address], [facility] Blood specimen (specimen) 07/17/2019 4:09 PM SENIOR REVENUE ACCOUNTANT 07/18/2019 6:45 PM SENIOR REVENUE ACCOUNTANT us Mary Marks FITNESS TECHNICIAN LAB MICROBIOLOGY - GENERAL ORDERABLES Final Result Performing Organization Address City/[facility] Co de Phone Number EDDI PILLAI ([place]) 1 [facility] Department [place] [address] from Last 3 Months or Most Recently Relevant to Health Maintenance Insurance [facility] CHOICE PLUS [facility] CHOICE PLUS Member Subscriber Plan / Payer (Ef fective 2020-Present) Name:Norma Bishop Relation to Subscriber:Self Name:Norma Bishop Payer ID:[id number] (NAIC) Type:[facility] HMO/PPO Address: [place] [id number] [facility] CHOICE PLUS Member Subscriber Plan / Payer (Ef fective 2021-Present) Name:Norma Bishop Relation to Subscriber:Self Name:Norma Bishop Payer ID:[id number] (NAIC) Type:[facility] HMO/PPO Address: [place] [id number] Care Teams Solderer Dipper Relationship Specialty Start Date End Date Loni Morales DO [address] [place] [address] PCP - General Family Medicine 11/17/24
--- OUTSIDE RECORDS SUMMARY | 2024-11-27 00:26 | XMS_ITS | Referral Summary ---
Author Organization [facility] Address [address] [place] [phone] Care Team Providers Care Thermal Cutter Hand Name Role Phone Loni Morales Primary Care Provider Encounters Date Type Department Care Team Description 09/08/2024 9:34 AM WEB PRODUCTION MANAGER - 09/08/2024 11:59 PM WEB PRODUCTION MANAGER Hospital Encounter [facility] [address] [place] [address] Centrilobular emphysema (HCC) Discharge Disposition: Discharge to home or self care 09/08/2024 9:38 AM WEB PRODUCTION MANAGER - 09/08/2024 11:59 PM [facility] Hospital Encounter [facility] [address] [place] [address] Encounter for screening mammogram for malignant neoplasm [...] 07/17/2019 Assessment & Plan (05/17/2020 2:09 PM WEB PRODUCTION MANAGER): HPI: Condition is stable A&P: Discussed/ordered labs, encouraged healthy, low carbohydrate lifestyle and at least 150min/week of exercise, continue on vit d3 [address]10 units weekly Assessment & Plan (07/17/2019 3:41 PM WEB PRODUCTION MANAGER): Pt was out of vit d for multiple months. Class 2 obesity due to exces s calories without serious comorbidity with body mass index (BMI) of 36.0 to 36.9 in adult 06/26/2017 Assessment & Plan (05/17/2020 2:11 PM WEB PRODUCTION MANAGER): HPI: Condition is stable A&P: Healthy, low [...] in much longer they will become mushy [place] and/or coconut flour instead of regular flour [...] carb... Assessment & Plan (07/17/2019 3:03 PM WEB PRODUCTION MANAGER): Healthy, low carbohydrate lifestyle and exercise for [...] 03/30/2017 Overview (10/13/2020): Patient no longer seeing inweaver Dr. Ned Mauro Assessment & Plan (05/17/2020 2:10 PM WEB PRODUCTION MANAGER): HPI: Condition is stable A&P: Discussed/ordered labs, encouraged healthy, low carbohydrate lifestyle and at least 150min/week of exercise, continue on spiriva respimat 2 puff daily, Please consider the albuterol as a rescue only medication. If needing the albuterol more than 2xwk, please contact office. Pt no longer seeing Dr. Mauro (pulmonology) Assessment & Plan (07/17/2019 3:32 PM WEB PRODUCTION MANAGER): Discussed/ordered labs, Condition is stable, encouraged healthy, low carbohydrate lifestyle and at least 150min/week of exercise, continue on spiriva daily and using albuterol as needed for rescue Pt ran out of spiriva and albuterol about 3 mo ago No longer seeing Dr. Mauro (pulm) Hyperlipidemia 03/18/2014 Overview (10/19/2016): Hyperlipidemia Assessment & Plan (05/18/2020 9:47 AM WEB PRODUCTION MANAGER): HPI: Condition is stable A&P: Discussed/ordered labs, encouraged healthy, low carbohydrate lifestyle and at least 150min/week of exercise, she has tried simvastatin, atorvastatin, zetia- these all caused her legs to feel like lead, gemfibrozil caused excessive diarrhea. Assessment & Plan (07/17/2019 3:40 PM WEB PRODUCTION MANAGER): Discussed/ordered labs, Condition is stable, encouraged healthy, low carbohydrate lifestyle and at least 150min/week of exercise Pt has been off of diet since April and just started back on her low carb diet a few days ago Hypertension 11/28/2013 Overview (10/17/2016): HTN (hypertension) Assessment & Plan (05/18/2020 9:34 AM WEB PRODUCTION MANAGER): HPI: Condition is Stable, bp at home has been good 120s/70s A&P: Discussed/ordered labs, encouraged healthy, low carbohydrate lifestyle and at least 150min/week of exercise, pt has no residual effects from stroke. Continue on lisinopril 20mg daily, metoprolol tartrate 25mg twice daily and nifedipine 90mg daily to keep blood pressure under good control Assessment & Plan (07/17/2019 3:02 PM WEB PRODUCTION MANAGER): Discussed/ordered labs, Condition is stable, encouraged healthy, [...] HTN Assessment & Plan (05/17/2020 2:08 PM WEB PRODUCTION MANAGER): HPI: Condition is stable A&P: Discussed/ordered labs, encouraged healthy, low carbohydrate lifestyle and at least 150min/week of exercise, pt has no residual effects from stroke. Continue on atorvastatin 10mg daily, lisinopril 20mg daily, metoprolol tartrate 25mg twice daily and nifedipine 90mg daily to keep blood pressure under good control Assessment & Plan (07/17/2019 3:34 PM WEB PRODUCTION MANAGER): Pt never saw neurology after being released from hospital. She was seeing staff field engineer but hasn't seen anyone in a while No residual effects from stroke Gout 09/24/2013 Overview (10/17/2016): Gout Assessment & Plan (05/17/2020 2:06 PM WEB PRODUCTION MANAGER): HPI: Condition is stable , pt avoids trigger foods and drinks A&P: Discussed/ordered labs, encouraged healthy, low carbohydrate lifestyle and at least 150min/week of exercise, continue on allopurinol 100mg twice daily Last flare summer 2017 Assessment & Plan (07/17/2019 3:35 PM WEB PRODUCTION MANAGER): Discussed/ordered labs, Condition is stable, encouraged healthy, [...] on file Legal Sex Female 1:52 AM WEB PRODUCTION MANAGER Gender Identity Not on file Sexual Orientation Not on file 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 Not on file Not on file Not on file Last Filed Vital Signs Vital Sign Reading Time Taken Comments Blood Pressure 117/74 05/18/2020 9:23 AM WEB PRODUCTION MANAGER Pulse 89 07/17/2019 3:25 PM WEB PRODUCTION MANAGER Temperature 36.8 C (98.2 F) 07/17/2019 3:25 PM WEB PRODUCTION MANAGER Respiratory Rate 10 07/17/2019 3:25 PM WEB PRODUCTION MANAGER Oxygen Saturation 96% 07/17/2019 3:25 PM WEB PRODUCTION MANAGER Inhaled Oxygen Concentration - - Weight 90.7 kg (200 lb) 05/18/2020 9:23 AM WEB PRODUCTION MANAGER Height 157.5 cm (5' 2 ) 05/18/2020 9:23 AM WEB PRODUCTION MANAGER Body Mass Index 36.58 05/18/2020 9:23 AM WEB PRODUCTION MANAGER Plan of Treatment Not on file Procedures Procedure Name Priority Date/Time Associated Diagnosis Comments PULMONARY FUNCTION TEST (PFT) Routine 09/08/2024 10:31 AM WEB PRODUCTION MANAGER Centrilobular emphysema (HCC) SCREENING MAMMOGRAM BILATERAL W DYLON Schedule Routine, Read Routine (OP Routine) 09/08/2024 9:58 AM WEB PRODUCTION MANAGER Encounter for screening mammogram for malignant neoplasm of breast STOOL DNA COLOGUARD Routine 06/09/2020 8:25 PM WEB PRODUCTION MANAGER Screening for colon cancer HEPATITIS C ANTIBODY Routine 07/17/2019 4:09 PM WEB PRODUCTION MANAGER Encounter for hepatitis C screening test for low risk patient from Last 3 Months or Most Recently Relevant to Health Maintenance Results * Pulmonary Function Test - (09/08/2024 10:31 AM WEB PRODUCTION MANAGER) Anatomical Region Laterality Modality PFT 09/08/2024 9:43 AM WEB PRODUCTION MANAGER Narrative 09/08/2024 5:31 PM WEB PRODUCTION MANAGER PFT performed at:-[facility] Spirometry shows mild obstruction. Positive for significant bronchdilator response. Lung volumes with no restrictive lung disease. Elevated RV suggests air trapping. No diffusion impairment. Normal inspiratory flow loop. Electronically signed by Linda Cuenca MD us Loni Morales DO PFT ORDERABLES Final Result * Screening Mammogram Bilateral W Dylon (09/08/2024 9:58 AM WEB PRODUCTION MANAGER) Anatomical Region Laterality Modality Breast Bilateral Mammography 09/08/2024 12:3 5 PM WEB PRODUCTION MANAGER Impressions 09/08/2024 12:35 PM WEB PRODUCTION MANAGER There is no mammographic evidence of malignancy. A 1 year screening mammogram is recommended. BI-RADS: 2 - Benign. The patient has been or will be contacted. The patient will be entered into a reminder system with a target due date of 1 year for her next mammogram. Electronically signed by: Slim Hurtado M.D. Narrative 09/08/2024 12:35 PM WEB PRODUCTION MANAGER EXAMINATION: SCREENING MAMMOGRAM BILATERAL W DYLON ORDERING [...] There has been no suspicious interval change. Loni Morales DO IMG MAMMO PROCEDURES F inal Result * Stool DNA - Cologuard (06/09/2020 8:25 PM WEB PRODUCTION MANAGER) Stool DNA - Cologuard Negative Not Applicable [employer] (CLIA #:[id number]) Comment: A negative result indicates a low [...] Torre. et al, N Engl J Med 2014;370(14):4080-0039) The normal value (reference range) for this assay is negative. COLOGUARD RE-SCREENING RECOMMENDATION: Periodic routine colorectal cancer screening is an important part of preventive healthcare for asymptomatic persons at average risk for colorectal cancer. Following a negative Cologuard result, the [place] Cancer Society and U.S. Multi-Society Task Force screening guidelines recommend a Cologuard re-screening interval of 3 years. References: [place] Cancer Society (ACS). Colorectal cancer prevention and early detection. [place], [place]: [place] Cancer Society; [updated 2015Nov 05]. https://www.cancer.org/cancer/arlxj-ldghhk-dtgzqs/bmcwcwwgz-tayfuvpfm-venacer/ac s-rec ommendations.html. Accessed March 14, 2018; Segundo FRAZIER, Jayjay MAYS, Lauren FLORES, Colorectal Cancer Screening: Recommendations for Physicians and Patients from the U.S. Multi-Society Task Force on Colorectal Cancer Screening, Am J Gastroenterology 2017; 112:3163-6646. TEST TYPE: Composite algorithmic analysis of stool [...] interval of every 3 years by the [place] Cancer Society and U.S. Multi-Society Task Force. [...] can be accessed at the following location: www.Caterva/results. Additional description of the Cologuard test process, warnings and precautions can be found at www.cologuardtest.com. Rx only. Stool 06/09/2020 8:25 PM WEB PRODUCTION MANAGER 06/11/2020 1:06 PM WEB PRODUCTION MANAGER Mary Marks NP LAB BODY FLUIDS AND STOOLS ORDERABLES Final Result [employer] (CLIA #:[id number]) [address] [place] [address] * Hepatitis C antibody (07/17/2019 4:09 PM WEB PRODUCTION MANAGER) Hep C Ab Negative Negative EDDI PILLAI (ARISTEO) Comment:Testing performed by : [facility], [address] [place] [address], [place]., [address] Blood specimen (specimen) 07/17/2019 4:09 PM WEB PRODUCTION MANAGER 07/18/2019 6:45 PM WEB PRODUCTION MANAGER us Mary Marks NP LAB MICROBIOLOGY - GENERAL ORDERABLES Final Result Performing Organization Address City/State/[facility] Co de Phone Number [facility] ([place]) 1 [facility] Department [place] [address] from Last 3 Months or Most Recently Relevant to Health Maintenance Insurance [id number] CHOICE PLUS [id number] CHOICE PLUS [facility] CHOICE PLUS Care Teams Thermal Cutter Hand Relationship Specialty Start Date End Date Loni Morales DO [address] [place] [address] PCP - General Family Medicine 11/17/24
--- OUTSIDE RECORDS SUMMARY | 2024-11-27 00:27 | XMS_ITS | Encounter Summary ---
Author Organization [facility] Address [facility] [place] [address] Care Team Providers Care Pleat Patternmaker Name Role Phone Loni Morales DO Primary Care Provider [phone] Encounter Details Date Type Department Care Team (Late st Contact Info) Description 10/01/2024 [employer] Message Enc [facility] Mult[facility] - [place] [address] [place], [place] [phone] [facility], [facility] Provider xray results Social History Tobacco Use [...] PM CDT Legal Sex Female 12:45 PM INTERNAL COMBUSTION ENGINEER Gender Identity Female 09/29/2024 2:22 PM CDT Sexual Orientation Not on file documented as of this encounter Plan of Treatment Upcoming Encounters Date Type Department Care Team (Late Contact Info) Description 11/30/2024 4:30 PM CDT Appointment [facility] [address] [place] [address] Loni Morales DO [address] [place], [place] [id number] 12/24/2024 7:40 AM CDT Office Visit [facility] - [place] [address] [place] [address] Loni Morales DO [address] [place] [address] documented as of this encounter Visit Diagnoses Not on filedocumented in this encounter Additional Health Concerns Assessment Noted Time PHQ-9 Depression Total Score: 2 07/16/19 25 2:17 PM INTERNAL COMBUSTION ENGINEER documented as of this encounter Care Teams Pleat Patternmaker Relationship Specialty Start Date End Date Loni Morales DO [address] [place] [address] PCP - General FAMILY PRACTICE 06/24/24 documented as of this encounter
--- OUTSIDE RECORDS SUMMARY | 2024-11-27 00:27 | XMS_ITS | Encounter Summary ---
Author Organization [facility] Healthcare Address [address] [place] [address] Care Team Providers Care Pharmacy Technologist Name Role Phone Krista Hernandez MD Primary Care Provider [phone] Krista Hernandez MD Primary Care Provider [phone] Loni Morales DO Primary Care Provider Reason for Visit * Reason Onset Date Comments Scheduling Appointments 02/03/2021 Confirmi ng mammogram appt- no answer Encounter Details Date Type Department Care Team (Late st Contact Info) Description 02/03/2021 Telephone [facility] [address] [place] [id number] Lynsey Ritchie RT Scheduling Appointments (Confirming mammogram [...] file 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 Gender Identity Not on file Sexual Orientation Not on file 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 Not on file Not on file Not on file documented as of this encounter Plan of Treatment Not on file documented as of this encounter Visit Diagnoses Not on filedocumented in this encounter Care Teams Pharmacy Technologist Relationship Specialty Start Date End Date Krista Hernandez MD [address] [facility] [address] [address] PCP - General Internal Medicine 01/30/21 04/26/21 Krista Hernandez MD [address] [facility] [address] [place] [address] PCP - General Internal Medicine 04/27/21 11/16/24 Loni Morales DO [address] [place], [place] [id number] PCP - General Family Medicine 11/17/24 documented as of this encounter
--- OUTSIDE RECORDS SUMMARY | 2024-11-27 00:27 | XMS_ITS | Clinical Summary ---
Author Organization [facility] Address [address] [place] [address] Care Team Providers Care Musical Therapist Name Role Phone Loni Morales DO Primary Care Provider [phone] Source Comments [employer] [facility],non-owned Affiliates and Associated Physician Practices is amultiple site organization consisting of ambulatory clinics and hospital sitesin [place], [place], [place] and [place]. This disclosure is being madepursuant to the Care Everywhere program and may not contain all information available regarding this patient. Last updated 18.[facility] Allergies No known active allergies Medications * [...] Type Department Care Team Description 10/23/2024 Telephone [facility] [address] [place], [place] [id number] Karri Pepper, DO Physical Therapy 10/21/2024 11:20 AM CDT Office Visit [facility] [address], [address] [address] Karri Pepper, DO Acute meniscal [...] to complete this topic Insurance Care Teams Musical Therapist Relationship Specialty Start Date End Date Loni Morales DO [address] [place] [address] PCP - General 10/21/24
--- OUTSIDE RECORDS SUMMARY | 2024-11-27 00:28 | XMS_ITS | Clinical Summary ---
Author Organization [facility] Address [address] [place] [address] Phone Care Team Providers Care Sorting Machine Operator Name Role Phone Mary Marks TRANSMISSION SUPERINTENDENT Primary Care Provi santy Allergies No known [...] by inhalation. 06/26/2017 Active Cholecalciferol (VITAMIN D3) 37468 UNIT Capsule TK 1 C PO QD 07/21/2019 Active Active Problems Problem Noted Date Diagnosed Date Centrilobular emphysema 03/30/2017 Overview (09/13/2019): Managed by bearing ring assembler Dr. Ned Mauro Last Assessment & Plan: [...] being released from hospital. She was seeing oven heater helper but hasn't seen anyone in a while [...] - 10/29/2024 11:59 PM CDT Hospital [facility] [address] [place] [address] Provider, Not On File Loni Morales DO Discharge Disposition: Discharged to home or Selfcare 10/29/2024 Travel 10/29/2024 Transcribe Orders [facility] Central Scheduling [address] [place] [address] Loni Morales FNP Postmenopausal bleeding (Primary Dx) [...] Comments Blood Pressure 126/55 09/13/2019 5:55 PM CONFIGURATION MANAGEMENT ADMINISTRATOR Pulse 95 09/13/2019 5:55 PM CONFIGURATION MANAGEMENT ADMINISTRATOR Temperature 38.3 C (101 F) 09/13/2019 5:55 PM CONFIGURATION MANAGEMENT ADMINISTRATOR Respiratory Rate 16 09/13/2019 4:22 PM CONFIGURATION MANAGEMENT ADMINISTRATOR Oxygen Saturation 95% 09/13/2019 5:55 PM CONFIGURATION MANAGEMENT ADMINISTRATOR Inhaled Oxygen Concentration - - Weight 87.5 kg (193 lb) 09/13/2019 4:22 PM CONFIGURATION MANAGEMENT ADMINISTRATOR Height 157.5 cm (5' 2 ) 09/13/2019 4:22 PM CONFIGURATION MANAGEMENT ADMINISTRATOR Body Mass Index 35.3 09/13/2019 4:22 PM CONFIGURATION MANAGEMENT ADMINISTRATOR Plan of Treatment Health Maintenance Due Date [...] Adithya Acosta M.D. CH: [facility]O Report ID: [id number] Reading Location: [id number] Procedure Note Adithya Acosta Jr., MD - [...] Adithya Acosta M.D. CH: ROLANDO Report ID: [id number] Reading Location: [id number] IMPRESSION: No evidence of an acute abnormality. Uterine fibroid 2.1 cm, has submucosal extension. Endometrium normal thickness. Left ovary could not be demonstrated for assessment, by history surgically absent. Normal appearance of the right ovary. us Not On File Provider IMG US ORDERABLES Final Res ult from Last 3 Months Insurance [facility] Care Teams Sorting Machine Operator Relationship Specialty Start Date End Date Mary Marks NP [address] [place] [address] DR HERRING [address] [place] [id number] PCP - General Advanced Practice Nurse 09/13/19
--- OUTSIDE RECORDS SUMMARY | 2024-11-27 00:28 | XMS_ITS | Encounter Summary ---
Author Organization [facility] Address [facility] [place] [address] Care Team Providers Care Talent Analyst Name Role Phone Loni Morales DO Primary Care Provider [phone] Encounter Details Date Type Department Care Team (Latest Contact Info) Description 11/26/2024 Travel Social History Tobacco Use Types Packs/Day Years Used Date Smoking Tobacco: Former Cigarettes 0.5 26 1 - 2010 Passive Smoke Exposure: Past Smokeless Tobacco: Never Alcohol Use Standard Drinks/Week Comments Not Currently 0 (1 standard drink = 0.6 oz pur e alcohol) PHQ-2 Answer Date Recorded Patient Health Questionnaire-2 Score 0 07/16/2024 Comments No Sex and Gender Information Value Date Recorded Sex Assigned at Female 09/29/2024 2:22 PM CDT Legal Sex Female 12:45 PM PER DIEM REGISTERED NURSE Gender Identity Female 09/29/2024 2:22 PM CDT Sexual Orientation Not on file documented as of this encounter Plan of Treatment Upcoming Encounters Date Type Department Care Team (Late st Contact Info) Description 11/30/2024 4:30 PM CDT Appointment [facility] [address] [place] [address] Loni Morales, DO [address] [place] [address] 12/24/2024 7:40 AM CDT Office Visit [facility] [place] [address] [place] [address] Loni Morales DO [address] [place] [address] documented as of this encounter Visit Diagnoses Not on filedocumented in this encounter Additional Health Concerns Assessment Noted Time PHQ-9 Depression Total Score: 2 07/16/19 25 2:17 PM PER DIEM REGISTERED NURSE documented as of this encounter Care Teams Talent Analyst Relationship Specialty Start Date End Date Loni Morales DO [address] [place] [address] PCP - General FAMILY PRACTICE 06/24/24 documented as of this encounter
--- OUTSIDE RECORDS SUMMARY | 2024-11-27 00:28 | XMS_ITS | Encounter Summary ---
Author Organization [facility] Address [address] [place] [address] Care Team Providers Care Computer Designer Name Role Phone Loni Morales DO Primary Care Provider [phone] Reason for Referral * Imaging (Routine) - Authorized Specialty Diagnoses / Procedures Referred By Contac t Referred To Contact RADIOLOGY Diagnoses Primary hypertension Mixed hyperlipidemia Class 3 severe obesity with serious comorbidity and body mass index (BMI) of 40.0 to 44.9 in adult, unspecified obesity type Procedures CT HEART SCREEN CALCIUM SCORE PROMO Loni Morales DO [address], [address] [place] [address] Phone: tel: fax: Referral ID Status Reason Start Date Expiration Date V isits Requested Visits Authorized [id number] Authorized 11/26/2024 11/26/2025 1 1 Reason for Visit * Reason Comments Diabetes Hypertension Encounter Details Date Type Department Care Team (Latest Contact Info) Description 11/26/2024 7:40 AM CDT Office Visit [facility] [place] [address] [place] [address] Loni Morales DO 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 Patient is counseled on potential symptoms that she may experience with medication such as flatulence, bloating, abdominal cramping and that this can happen due to the mechanism of action of the medication. Recommended amount of daily dietary fiber intake is women over 50 is 21 g daily. I recommend you aim for 30 to 60 g daily. I recommend increasing intake of dietary fiber through whole grains (quinoa,brown rice, oats) and legumes (beans, chickpeas, lentils). In addition, you can supplement diet with psyllium husk such as found in Metamucil if you would like in addition to increasing dietary intake of whole grains, legumes, fruits and vegetables. Increasedietary fiber slowly as rapid increase may contribute to increased gas, abdominal pain and change in stools. Please take blood pressure measurements at home once daily and keep log and bring in log and deviceat next visit. Referral Information Referral Call - You will receive a call regarding this referral. Depending on the type of referral,this call may come from the [facility] Referral team at [phone] or from an [facility] hospital or an [facility] clinic. Insurance Authorization - Our referral specialists will contact your insurance company to get priorauthorization, if applicable. Working with insurance companies can be cumbersome, but we are dedicated to processing your referral timely and efficiently. Please know you have a caring and competent team working on your [facility] of care as quickly as possible. If you have questions or concerns regarding your referral, or have not heard anything in 5 days, please call [phone]. Saturday - Saturday, 7:30 a.m. - 5 p.m. * Attachments The following attachments cannot be sent through Care Everywhere. * High-fiber diet (Croatian) documented in this encounter Progress Notes * Loni Morales DO - 11/26/2024 8:23 AM CDTAssociated Problem(s): Elevated alkaline phosphatase level Awaiting completion of liver ultrasound and results. * Loni Morales DO - 11/26/2024 8:16 AM CDTAssociated Problem(s): Primary hypertension Blood pressure fairly appropriate in office today. Continue current medications. Recommend patient use arm cuff blood pressure monitoring device at home and take blood pressure measurements at home and then bring in device and log to next appointment. * Loni Morales DO - 11/26/2024 8:16 AM CDTAssociated Problem(s): History of stroke She is counseled that in the setting of her previous stroke, she should be taking aspirin 81 mg daily. * Loni Morales DO - 11/26/2024 8:16 AM CDTAssociated Problem(s): Immunization declined Discussed with patient that she is due for shingles vaccine, pneumonia vaccine, Tdap and RSV vaccine. She declined vaccines. * Loni Morales DO - 11/26/2024 8:15 AM CDTAssociated Problem(s): Need for ullyqperka-ilekrdq-stnogmnjr (Tdap) vaccine She is unsure of when last Tdap was given or aware. Recommended that we proceed with Tdap however she said not today . * Loni Morales DO - 11/26/2024 8:10 AM CDTAssociated Problem(s): Class 3 severe obesity with serious comorbidity and body mass index (BMI) of40.0 to 44.9 in adult, unspecified obesity type Stable from last visit. * Loni Morales DO - 11/26/2024 8:09 AM CDTAssociated Problem(s): Mixed hyperlipidemia As we are unsure of patient's experience in doses with trialing medication prior. We will trial rosuvastatin 5 mg once every other day and monitor for side effects. Patient counseled that she has increased risk of heart attack and/or stroke. She has previously had stroke. Discussed with patient that I recommend she have CT calcium score completed. This test was ordered.She was counseled this is generally an mqf-bf-qkglnc cost. We may be able to get Repatha for patient. * Lnoi Morales DO - 11/26/2024 8:08 AM CDTAssociated Problem(s): Type 2 diabetes mellitus with stage 2 chronic kidney disease, without long-term current use of insulin ([facility]) Will start metformin. She was counseled on [...] or titrate down to previous dose if symptomsare prominent. Patient is counseled on potential symptoms that she may experience with medication such as flatulence, bloating, abdominal cramping and that this can happen due to the mechanism of action of the medication. She declined referral to environmental educator. * Loni Morales DO - 11/26/2024 7:40 AM CDT SUBJECTIVE: Norma Banuelos is a 59-year-old year old female who presents for follow-up diabetes, hypertension, liver ultrasound, high cholesterol. Problem Immunization Declined Need for Zczmaniotk-Xwsqofz-Xqkfslgge (Tdap) Vaccine 2024: Patient unsure of when last Tdap was given or where Elevated Alkaline Phosphatase Level 07/02/2024 ALKALINE PHOSPHATASE S/P/B 46 - 118 U/L 119 High 10/13/2024 ALKALINE PHOSPHATASE S/P/B 46 - 118 U/L 126 High Component Ref Range & Units 10/13/24 0752 GGT 5 - 55 U/L 79 High 11/26/2024: She reports she has liver ultrasound ordered. Class 3 Severe Obesity With Serious Comorbidity and Body Mass Index (Bmi) of 40.0 to 44.9 in Adult,Unspecified Obesity Type Initial visit 07/02/2024: She reports she does not follow a particular diet at this time. Type 2 Diabetes Mellitus With Stage 2 Chronic Kidney Disease, Without Long-Term Current Use of Insulin ([facility]) Regimen: None Hemoglobin A1c: 6.5% (10/13/2024) Eye exam: Had appointment with [facility] 11/10/2024 which showed no diabetic retinopathy and toreturn in 1 year Microalbumin/creatinine: 14, 10/13/2024 ; [...] other medication for diabetes in the past. Mixed Hyperlipidemia Initial visit 07/02/2024: Patient reports she is trialed multiple statin medications. She reports she tried ezetimibe and . Previous lipid panel per chart review 07/17/2019 Total cholesterol: 319 Triglycerides: 284 HDL: 50 LDL: 212 Non-HDL cholesterol: 269 Cholesterol/HDL ratio: 6 11/26/2024: She reports she traveled [place] [facility] [employer] unknown doses for unknown length of time each once. She reports she tried ezetimibe twice with Dr. Hernandez. She reports she also tried another medication and she experienced diarrhea. History of Stroke History of CVA (cerebrovascular accident) 2010 - no residual - no bleed, secondary to HTN She was seeing wood polisher but hasn't seen anyone in a while No residual effects from stroke 07/16/2024: She reports she was on daily aspirin for a long time however discontinued as she kept having multiple bruises appear on her body. Primary Hypertension Regimen: lisinopril 20mg daily, metoprolol titrate 25 [...] reports she has been taking her medications asprescribed. 2024: She reports she ran out of hydrochlorothiazide 12.5 mg daily and feels swollen 11/26/2024: She reports she started taking hydrochlorothiazide again. She reports her blood pressurerecently at plate stacker office was more appropriate. Review of Systems Constitutional: Negative. Respiratory: Negative. Cardiovascular: Negative. Patient's past medical history, medications, allergies, family history, and social history reviewedand updated in Epic chart as necessary. 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, without long-term current use of insulin ([facility]) History of spleen injury Family history of COPD (chronic obstructive pulmonary disease) Cigarette nicotine dependence in remission History of ectopic Stage 2 chronic kidney disease Family history of alcohol abuse and dependence History of gout Acute pain of left knee Postmenopausal bleeding Complex tear of medial meniscus of left knee as current injury, subsequent encounter Elevated alkaline phosphatase level Hypercholesterolemia with LDL greater than 190 mg/dL Submucous leiomyoma of uterus Need for svadcswhij-vplxduy-urwvlhidz (Tdap) vaccine Immunization declined Current Outpatient Medications: acetaminophen (TYLENOL) 325 MG tablet, Take 2 tablets (650 mg total) by mouth every 6 (six) hours as needed., Disp: , Rfl: albuterol sulfate HFA 108 (90 Base) MCG/ACT inhaler, Inhale 2 puffs into the lungs every 4 (four) hours as needed., Disp: , Rfl: allopurinol (ZYLOPRIM) 100 MG tablet, Take 1 tablet (100 mg total) by mouth daily., Disp: , Rfl: Glucose Blood (ONE TOUCH/ONE TOUCH II STARTER ), , Disp: , Rfl: hydroCHLOROthiazide (MICROZIDE) 12.5 MG tablet, Take 1 tablet (12.5 mg total) by mouth every morning., Disp: 90 tablet, Rfl: 0 lisinopril (PRINIVIL) 40 MG tablet, Take 1 tablet (40 mg total) by mouth daily., Disp: 90 tablet, Rfl: 1 metoprolol tartrate (LOPRESSOR) 25 MG tablet, Take 1 tablet (25 mg total) by mouth 2 (two) times daily., Disp: , Rfl: NIFEdipine XL (PROCARDIA XL) 90 MG 24 hr tablet, Take 1 tablet (90 mg total) by mouth daily., Disp:, Rfl: SPIRIVA RESPIMAT 2.5 MCG/ACT inhaler (SPIRIVA RESPIMAT), Inhale 2 puffs into the lungs daily., Disp: , Rfl: metFORMIN (GLUCOPHAGE) 500 MG tablet, Take 1 tablet (500 mg total) by mouth 2 (two) times daily with meals., Disp: 180 tablet, Rfl: 0 rosuvastatin (CRESTOR) 5 MG tablet, Take 1 tablet (5 mg total) by mouth nightly at bedtime for 30 days., Disp: 30 tablet, Rfl: 0 Review of patient's allergies indicates: No Known Allergies Past Surgical History[1] OBJECTIVE: Filed Vitals: 11/26/24 0747 11/26/24 0810 BP: (!) 146/86 126/82 Pulse: 73 Resp: 18 Temp: 98.1 Â°F (36.7 Â°C) TempSrc: Core SpO2: 94% Weight: 102.9 kg (226 lb 12.8 oz) Height: 1.575 m (5' 2 ) Physical Exam Vitals reviewed. Constitutional: General: She is not in acute distress. Appearance: Normal appearance. She is obese. HENT: Head: Normocephalic and atraumatic. Eyes: Extraocular Movements: Extraocular movements intact. Conjunctiva/sclera: Conjunctivae normal. Cardiovascular: Rate and Rhythm: Normal rate. Pulmonary: Effort: Pulmonary effort is normal. No respiratory distress. Skin: General: Skin is warm and dry. Neurological: General: No focal deficit present. Mental Status: She is alert. Gait: Gait normal. Psychiatric: Mood and Affect: Mood normal. Behavior: Behavior normal. Thought Content: Thought content normal. No visits with results within 10 Day(s) from this visit. Latest known visit with results is: Hospital Outpatient Visit on 10/29/2024 Component Date Value Ref Range Status THIN PREP PAP 10/29/2024 Final Value: [address] [phone] Department of Pathology Pathology Report CERVICAL/VAGINAL PAP SMEAR REPORT Name: NORMA BANUELOS Age: 4 1965 (Age: 58) Location: [facility] Sex: F Collected Date: 10/29/2024 [facility] #: [id number] Date Received: 10/30/2024 Date Reported: 11/05/2024 Provider: LONI MORALES INTERPRETATION ABNORMAL RESULT CERVICAL/ENDOCERVICAL: SATISFACTORY FOR EVALUATION. ENDOCERVICAL/TRANSFORMATION ZONE COMPONENT PRESENT. ENDOMETRIAL CE LLS PRESENT (POSTMENOPAUSAL). NEGATIVE FOR SQUAMOUS INTRAEPITHELIAL LESION. NEGATIVE FOR HIGH RISK HPV. The FDA approved Aptima HPV assay is an in vitro nucleic acid amplification test for the qualitative detection of E6/E7 viral messenger RNA (mRNA) from 14 high-risk types of human papillomavirus (HPV) in cervical specimens. The high-risk HPV types detected by the assay include: 16,18,31,33,35,39,45,51,52,56,58,59,66, and 68. Electronically Signed Out FAM Yung, CT (ASCP) CLINICAL HISTORY (Z12.4) CERVICAL CANCER SCREENING PAP TEST SCREENING NO HISTORY OR AT HIGH RISK ThinPrep Pap Test with HR HPV testing in patient > 30 years requested. Date of Last Menstrual Period: 2021 Menstrual Status: Post-Menopausal Abnormal Bleeding SPECIMEN SUBMITTED CERVICAL/ENDOCERVICAL Specimen Received:1 Thin Prep Vial, Image Assisted Pap (SMD) Please note: The Pap smear is not a diagnostic test. It is a screening test. Negative results on combined screening (Pap test and HPV-DNA) have a high negative predictive value (99.1-100 percent) for cervical cancer. The pap test is not effective in detecting cervical adenocarcinoma. SPEC DESCRIPTION 10/29/2024 CERVIX Final HPV DNA HIGH RISK 10/29/2024 NEGATIVE NEGATIVE Final SEE CYTOLOGY REPORT ] ASSESSMENT & PLAN: Norma Banuelos is a 59-year-old female presents to discuss with following. Problem List Items Addressed This Visit History of stroke (Chronic) She is counseled that in the setting of her previous stroke, she should be taking aspirin 81 mg daily. Relevant Medications rosuvastatin (CRESTOR) 5 MG tablet metFORMIN (GLUCOPHAGE) 500 MG tablet Mixed hyperlipidemia As we are unsure of patient's experience in doses with trialing medication prior. We will trial rosuvastatin 5 mg once every other day and monitor for side effects. Patient counseled that she has increased risk of heart attack and/or stroke. She has previously had stroke. Discussed with patient that I recommend she have CT calcium score completed. This test was ordered.She was counseled this is generally an vsj-ww-djgeja cost. We may be able to get Repatha for patient. Relevant Medications rosuvastatin (CRESTOR) 5 MG tablet Other Relevant Orders CT HEART SCREEN CALCIUM SCORE PROMO Primary hypertension Blood pressure fairly appropriate in office today. Continue current medications. Recommend patient use arm cuff blood pressure monitoring device at home and take blood pressure measurements at home and then bring in device and log to next appointment. Relevant Orders CT HEART SCREEN CALCIUM SCORE PROMO Class 3 severe obesity with serious comorbidity and body mass index (BMI) of 40.0 to 44.9 in adult,unspecified obesity type Stable from last visit. Relevant Orders CT HEART SCREEN CALCIUM SCORE PROMO Type 2 diabetes mellitus with stage 2 chronic kidney disease, without long-term current use of insulin ([facility]) - Primary Will start metformin. She was counseled on [...] or titrate down to previous dose if symptomsare prominent. Patient is counseled on potential symptoms that she may experience with medication such as flatulence, bloating, abdominal cramping and that this can happen due to the mechanism of action of the medication. She declined referral to environmental educator. Relevant Medications rosuvastatin (CRESTOR) 5 MG tablet metFORMIN (GLUCOPHAGE) 500 MG tablet Elevated alkaline phosphatase level Awaiting completion of liver ultrasound and results. Need for tgovhojvvw-lqujkor-grbkcthru (Tdap) vaccine She is unsure of when last Tdap was given or aware. Recommended that we proceed with Tdap however she said not today . Immunization declined Discussed with patient that she is due for shingles vaccine, pneumonia vaccine, Tdap and RSV vaccine. She declined vaccines. Other Visit Diagnoses Need for hepatitis B screening test Relevant Orders HEPATITIS B CORE ANTIBODY HEPATITIS B CORE AB IGM HEPATITIS B SURFACE AG, EIA HEPATITIS B SURFACE ANTIBODY This patient is established and follows with me longitudinally. Lab: None Specified Return in about 4 weeks (around 12/24/2024) for Follow-up diabetes. LONI MORALES, DO Family Practice [1] Past Surgical History: Procedure Laterality Date APPENDECTOMY LAPAROTOMY OOPHERECTOMY REPAIR OF RUPTURED SPLEEN 1995 documented in this encounter Plan of Treatment Upcoming Encounters Date Type Department Care Team (Late st Contact Info) Description 11/30/2024 4:30 PM CDT [facility] [address] [place] [address] Loni Morales, DO [address], [address] [place] [address] 12/24/2024 7:40 AM CDT Office Visit [facility] [place] [address] [place] [address] Loni Morales, DO [address] [place] [address] Scheduled Orders Name Type Priority Associated Diagnoses Orde r Schedule CT HEART SCREEN CALCIUM SCORE PROMO CT Routine Primary hypertension Mixed hyperlipidemia Class 3 severe obesity with serious comorbidity and body mass index (BMI) of 40.0 to 44.9 in adult, unspecified obesity type Expected: 11/26/2024, Expires: 11/26/2025 HEPATITIS B CORE ANTIBODY Lab Routine Need for hepatitis B screening test Expected: 11/26/2024, Expires: 11/26/2025 HEPATITIS B CORE AB IGM Lab Routine Need for hepatitis B screening test Expected: 11/26/2024, Expires: 11/26/2025 HEPATITIS B SURFACE AG, EIA Lab Routine Need for hepatitis B screening test Expected: 11/26/2024, Expires: 11/26/2025 HEPATITIS B SURFACE ANTIBODY Lab Routine Need for hepatitis B screening test Expected: 11/26/2024, Expires: 11/26/2025 documented as of this encounter Visit Diagnoses Diagnosis Type 2 diabetes mellitus with stage 2 chronic kidney disease, without long-term current use of insulin (CMS/HCC HHS/HCC)- Primary Primary hypertension Unspecified essential hypertension Mixed hyperlipidemia Elevated alkaline phosphatase level Other nonspecific abnormal serum enzyme levels Class 3 severe obesity with serious comorbidity and body mass index (BMI) of 40.0 to 44.9 in adult, unspecified obesity type Need for njyhkmxvao-vpjmobc-duvgduqyc (Tdap) vaccine Need for prophylactic vaccination with combined xyltclkcju-jajvhpj-fbdhqkrbk (DTP) vaccine Need for hepatitis B screening test History of stroke Transient ischemic attack (TIA), and cerebral infarction without residual deficits Immunization declined documented in this encounter Additional Health Concerns Assessment Noted Time PHQ-9 Depression Total Score: 2 07/16/19 25 2:17 PM EDUCATION NURSE documented as of this encounter Care Teams Computer Designer Relationship Specialty Start Date End Date Loni Morales DO [address] [place] [address] PCP - General FAMILY PRACTICE 06/24/24 documented as of this encounter
--- NOTE | 2024-11-27 06:44 | WPDHPUPDATE1 ---
History and Physical Update Update Date/Time: 11/27/24 06:44 History and Physical has been reviewed, including an updated exam of the patient. There are NO changes in the patient's condition. Risks, benefits, and alternatives have been discussed and questions answered. Patient agrees to proceed with procedure.
[2024-11-27] MEDS: ACETAMINOPHEN 500 MG TABLET 1000 MG PO (09:12)
[2024-11-27 09:13] VITALS: BP 131/84; PULSE 73; RESP 16; TEMP 36.7; O2SAT 97
--- NOTE | 2024-11-27 09:44 | P.PNAN_ITS ---
Anes - Initial Pre Proc Eval Procedure: Operation Date: 11/27/24 10:15 Proposed Procedures p Hysteroscopy Dilation and Curettage - Tucker Meléndez MD Date/Time: 11/27/24 09:44 Surgeon: Tucker Meléndez MD Pre Op Diagnosis: Post Menopausal Bleeding Patient Data Age: 59 Gender: F Height: 1.57 m Weight: 103.3 kg Last Vital Signs Temp 36.7 C 11/27/24 09:13 Pulse 73 11/27/24 09:13 Resp 16 11/27/24 09:13 BP 131/84 11/27/24 09:13 Pulse Ox 97 11/27/24 09:13 O2 Del Method Room Air 11/27/24 09:13 Allergies Allergy/AdvReac Type Severity Reaction Status Date / Time No Known Allergies Allergy Verified 11/27/24 09:11 Home Medications Medication Instructions Recorded Confirmed Type acetaminophen 325 mg tablet 325 mg PO Q6H PRN pain 11/20/24 11/20/24 History (Aminofen) allopurinol 100 mg tablet 100 mg PO DAILY 11/20/24 11/20/24 History cholecalciferol (vitamin D3) 50 2,000 unit PO DAILY 11/20/24 11/20/24 History mcg (2,000 unit) capsule (Vitamin D3) hydrochlorothiazide 12.5 mg tablet 12.5 mg PO DAILY 11/20/24 11/20/24 History lisinopril 40 mg tablet 40 mg PO DAILY 11/20/24 11/20/24 History magnesium 250 mg tablet 250 mg PO DAILY 11/20/24 11/20/24 History metoprolol tartrate 50 mg tablet 25 mg PO BID 11/20/24 11/20/24 History nifedipine 90 mg tablet,extended 90 mg PO DAILY 11/20/24 11/20/24 History release hydrocodone 5 mg-acetaminophen 325 1 tablet PO Q4H PRN pain #14 tabs 11/27/24 Rx mg tablet Patient hx anesthesia problems: none Family hx anesthesia problems: none Results Review: All pre-operative results and documents have been reviewed as part of the pre- operative evaluation. [facility] Social History Social History Years smoked: 25 Smoking status: Former smoker Tobacco type: cigarettes Smoking end date: 11/20/10 Living arrangements: with family Spiritual care concerns: No Anes - Eval Final PreProcedure Day of Procedure 11/27/24 09:44 Patient weight: morbidly obese Heart: regular rate and rhythm Lungs: decreased breath sounds Airway: Mallampati scale class II Neurological: alert and oriented Last oral intake: >/= 8 hours ASA classification: III Emergent: no Anesthetic plan: proceed Anesthesia type and monitoring: general GIVS and standard monitoring Results Review: All pre-operative results and documents have been reviewed as part of the pre- operative evaluation. Informed Consent: The patient's anesthetic plan and its attendant risks and benefits were discussed with the patient/family/POA. Questions were solicited and answers provided to the satisfaction of the patient/family/POA.
[2024-11-27] MEDS: LACTATED RINGERS 1,000 ML 30 ML IV CONT ×2 (09:45→11:16)
[2024-11-27] MEDS: LIDOCAINE 1% LOCAL INJ 10 ML VIAL INFILTRATE (11:07)
[2024-11-27 11:16] VITALS: BP 123/71; PULSE 66; RESP 16
--- NOTE | 2024-11-27 11:18 | W.PM.PROC2 ---
Procedure Note - Detailed Date of Procedure 11/27/24 Pre-op Diagnosis Post Menopausal Bleeding Post-op Diagnosis Same Procedure Performed Hysteroscopy/polypectomy/dilatation curettage Surgeon Tucker Meléndez MD Anesthesia MAC and Local Indications 59-year-old female postmenopausal bleeding Findings 2 benign-appearing endometrial polyps Description of Procedure Patient was prepped draped in normal sterile fashion placed in dorsal lithotomy position. Under excellent IV sedation weighted speculum placed in posterior fornix vagina. Anterior lip of the cervix grasped with single-tooth tenaculum. 2.5cc 1% xylocaine anesthesia placed at 2, 4, 8, 10:00 a.m. of the cervix. Uterus sounded to 8cm. Serial dilatation fragmented dilators performed followed by passage of the 5mm visualizing hysteroscope using normal saline as visualizing medium. Two endometrial polyps were seen and these were removed with the reticulated device. She tolerated the procedure well the uterus scraped over the entire 360° instruments removed which went recovery in satisfactory condition. All sponge, needle, instrument counts were correct. Estimated Blood Loss 5 Drains No Packing No Pathology Yes Complications No immediate complications Condition Stable Disposition PACU
[2024-11-27 11:45] VITALS: BP 123/82; PULSE 63; RESP 16
[2024-11-27 12:15] VITALS: BP 108/76; PULSE 61; RESP 16
== END 2024-11-27 12:25 | disposition home or self-care (01) ==
PROVIDERS: PCP Family Medicine; Visit Provider Obstetrics & Gynecology
PROC: 0U5B8ZZ Destruction of Endometrium, Via Natural or Artificial Opening Endoscopic (ICD-10-PCS; CPT 58563; principal; 2024-11-27 10:15)
DX: N84.0 Polyp of corpus uteri (principal); D25.9 Leiomyoma of uterus, unspecified; E66.01 Morbid (severe) obesity due to excess calories; Z68.41 Body mass index [BMI] 40.0-44.9, adult; Z87.891 Personal history of nicotine dependence; Z79.899 Other long term (current) drug therapy; Z79.891 Long term (current) use of opiate analgesic
CPT/HCPCS: 58558; 36415; 80048; 85014; 85018; 88305; A9270; J2003; J2704; J3010; J7120